=== PATIENT | male | born 1945 | race Caucasian/White ===

== ENCOUNTER 2017-08-18 10:40 | Emergency (ER) | payer OTHER, MEDICARE ==
[2017-08-18 11:06] VITALS: BMI 26.5
[2017-08-18 11:13] VITALS: RESP 18; TEMP 98.4
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
[2017-08-18 12:15] LABS: BASO # 0.01 K/mm3 (0.0-2.0); BASO % 0.1 % (0.0-3.0); EOS # 0.1 (0.0-0.7); EOS % 1.5 % (1.5-5.0); GRAN # 6.15 (1.4-6.5); GRAN % 69.6 % (50.0-68.0); MEAN CELL VOLUME 83.2 fl (80.0-105.0); MEAN CORPUSCULAR HEMOGLOBIN 28.4 pg (25.0-35.0); MEAN CORPUSCULAR HGB CONC 34.2 g/dl (31.0-37.0); MEAN PLATELET VOLUME 8.9 fl (7.0-11.0); MONO # 0.5 (0.1-0.6); MONO % 5.8 % (1.0-6.0); RBC 4.22 10^6/uL (3.5-6.1); RED CELL DISTRIBUTION WIDTH 13.3 % (11.5-14.5); WHITE BLOOD COUNT 8.8 10^3/ul (4.5-11.0)
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
[2017-08-18 12:20] LABS: ALB/GLOB RATIO 1.4 (1.1-1.8); ALBUMIN 4.4 g/dL (3.0-4.8); ALT/SGPT 40 U/L (7-56); AST/SGOT 36 U/L (17-59); BLOOD UREA NITROGEN 24 mg/dL (7-21); CALCIUM 9.9 mg/dL (8.4-10.5); GFR AFRICAN-AMERICAN > 60; GFR NON-AFRICAN AMERICAN > 60
[2017-08-18 12:31] LABS: TROPONIN I < 0.01 ng/mL
[2017-08-18 13:01] VITALS: BP 131/67; PULSE 79; O2SAT 95
--- NOTE | 2017-08-18 19:11 | CARD ---
APPROVED REPORT EKG Measurement Heart [id number] [place] [id number] <Conclusion> Normal sinus rhythm Normal ECG
== END 2017-08-18 13:31 | disposition home or self-care (01) ==
LOC: ED 10:40
DX: M79.1 Myalgia (principal); E11.9 Type 2 diabetes mellitus without complications; E78.5 Hyperlipidemia, unspecified; I10 Essential (primary) hypertension; I25.10 Atherosclerotic heart disease of native coronary artery without angina pectoris; Z87.891 Personal history of nicotine dependence; Z85.46 Personal history of malignant neoplasm of prostate
CPT/HCPCS: 71045; 80053; 82550; 83615; 83735; 84484; 85025; 93005; 96374; 99284; J1885

== ENCOUNTER 2018-02-10 11:12 | Observation (INO) | payer MEDICARE ==
[2018-02-10 11:22] VITALS: BMI 25.8
[2018-02-10] MEDS ORDERED: Sodium Chloride 0.9% 1,000 ML IV SCH (12:00)
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
[2018-02-10 12:33] LABS: PH,URINE 5.5 (4.7-8.0); URINE APPEARANCE CLEAR (CLEAR); URINE BILIRUBIN NEGATIVE (NEGATIVE); URINE BLOOD NEGATIVE (NEGATIVE); URINE COLOR YELLOW (YELLOW); URINE GLUCOSE (UA) 500 mg/dL (NEGATIVE); URINE LEUKOCYTE ESTERASE NEGATIVE Leu/uL (NEGATIVE); URINE PROTEIN NEGATIVE mg/dL (<30 mg/dL); URINE UROBILINOGEN 0.2 E.U./dL (<1 E.U./dL)
--- NOTE | 2018-02-10 12:33 | RAD ---
Date of service: 02/10/2018 HISTORY: dizziness COMPARISON: 08/18/2017 FINDINGS: LUNGS: The lungs are well inflated and clear. PLEURA: No pleural effusions or pneumothorax. CARDIOVASCULAR: The heart is normal in size. No aortic atherosclerotic calcification present. Status post median sternotomy OSSEOUS STRUCTURES: Within normal limits for the patient's age. VISUALIZED UPPER ABDOMEN: Normal. OTHER FINDINGS: None. IMPRESSION: No active pulmonary disease.
[2018-02-10 12:34] LABS: BASO # 0.02 K/mm3 (0.0-2.0); BASO % 0.2 % (0.0-3.0); EOS # 0.1 (0.0-0.7); EOS % 0.6 % (1.5-5.0); GRAN # 7.02 (1.4-6.5); GRAN % 80.6 % (50.0-68.0); HEMOGLOBIN 12.6 g/dL (14.0-18.0); LYMPH # 1.3 (1.2-3.4); LYMPH % 15.4 % (22.0-35.0); MEAN CORPUSCULAR HEMOGLOBIN 28.7 pg (25.0-35.0); MEAN CORPUSCULAR HGB CONC 33.8 g/dl (31.0-37.0); MEAN PLATELET VOLUME 8.8 fl (7.0-11.0); MONO # 0.3 (0.1-0.6); MONO % 3.2 % (1.0-6.0); RBC 4.39 10^6/uL (3.5-6.1); RED CELL DISTRIBUTION WIDTH 12.9 % (11.5-14.5); WHITE BLOOD COUNT 8.7 10^3/ul (4.5-11.0)
[2018-02-10 12:43] LABS: INR 1.03; PARTIAL THROMBOPLASTIN TIME 26.7 Seconds (25.1-36.5); PROTHROMBIN TIME 11.8 SECONDS (9.4-12.5)
[2018-02-10 12:47] LABS: ALB/GLOB RATIO 1.3 (1.1-1.8); ALBUMIN 4.3 g/dL (3.0-4.8); ALT/SGPT 31 U/L (7-56); AST/SGOT 33 U/L (17-59); BLOOD UREA NITROGEN 22 mg/dL (7-21); CALCIUM 9.7 mg/dL (8.4-10.5); GFR NON-AFRICAN AMERICAN > 60
[2018-02-10 12:58] LABS: TROPONIN I < 0.01 ng/mL
--- NOTE | 2018-02-10 14:48 | CP.PCM.HP ---
<Neeta Jamison - Last Filed: 02/10/18 14:55> History of Present Illness - History of Present Illness History of Present Illness: 72 year old male with a past medical history of diabetes, CAD s/p CABG, dyslipidemia, vertigo who presents with room spinning sensation that did not respond to his at home Meclizine. He reports also having nausea. The vertigo worsens with movement of his head. In the ED he is sitting with his bed at 45 degrees and his head tilted to the left with the lights off. He denies headache, tinnitus, or any changes in hearing or vision. He does report substantial heari ng loss from his left ear that has been present for 15 years. He denies chest pain, diaphoresis, palpitations, fevers, aural fullness, new onset unilateral weakness or numbness, diarrhea, cough, or any upper respiratory complaints. He was unable to engage in the Zuleima Maneuver and furthermore the Meclizine in the ED (25 mg) did not help. Otherwise, he has no other complaints. 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; denies alcohol or illicit drug use Present on Admission - Present on Admission Any Indicators Present on Admission: No Review of Systems - Review of Systems All systems: reviewed and no additional remarkable complaints except (as per HPI) Past Patient History - Infectious Disease Hx of Infectious Diseases: None - Tetanus Immunizations Tetanus Immunization: Unknown - Past Social History Smoking Status: Former Smoker - CARDIAC Hx Cardiac Disorders: Yes Hx Heart Attack: Yes Hx Hypertension: Yes Other/Comment: x4 stents - PULMONARY Hx Respiratory Disorders: No - NEUROLOGICAL Hx Neurological Disorder: Yes Hx Vertigo: Yes Other/Comment: Neuropathy - RENAL Hx Chronic Kidney Disease: No - ENDOCRINE/METABOLIC Hx Diabetes Mellitus Type 2: Yes - HEMATOLOGICAL/ONCOLOGICAL Hx Blood Transfusions: No Hx Blood Transfusion Reaction: No - MUSCULOSKELETAL/RHEUMATOLOGICAL Hx Falls: No - GASTROINTESTINAL Hx Diverticulitis: Yes - GENITOURINARY/GYNECOLOGICAL Hx Prostate Problems: Yes (cancer) - PSYCHIATRIC Hx Depression: No Hx Emotional Abuse: No Hx Physical Abuse: No Hx Substance Use: No - SURGICAL HISTORY Hx Coronary Artery Bypass Graft: Yes Other/Comment: prostatectomy,penile implant - ANESTHESIA Hx Anesthesia: Yes Hx Anesthesia Reactions: No Hx Malignant Hyperthermia: No Meds Allergies/Adverse Reactions: Allergies Allergy/AdvReac Type Severity Reaction Status Date / Time No Known Allergies Allergy Verified 02/10/18 11:22 Physical Exam - Constitutional Appears: Non-toxic - Head Exam Head Exam: ATRAUMATIC, NORMOCEPHALIC - Eye Exam Eye Exam: EOMI, Normal appearance, Nystagmus (not appreciated) - ENT Exam ENT Exam: Mucous Membranes Moist - Neck Exam Neck exam: Positive for: Normal Inspection - Respiratory Exam Respiratory Exam: Clear to Auscultation Bilateral, NORMAL BREATHING PATTERN. absent: Accessory Muscle Use - Cardiovascular Exam Cardiovascular Exam: RRR, +S1, +S2 - GI/Abdominal Exam GI & Abdominal Exam: Normal Bowel Sounds, Soft - Extremities Exam Extremities exam: Positive for: normal inspection. Negative for: calf tenderness - Back Exam Back exam: NORMAL INSPECTION. absent: CVA tenderness (L), CVA tenderness (R) - Neurological Exam Neurological exam: Alert, CN II-XII Intact, Oriented x3 - Psychiatric Exam Psychiatric exam: Normal Affect, Normal Mood - Skin Skin Exam: Dry, Intact, Normal Color, Warm Results - Vital Signs Recent Vital Signs: Last Vital Signs Temp 98.2 F 02/10/18 11:19 Pulse 75 02/10/18 11:41 Resp 18 02/10/18 11:41 BP 164/68 H 02/10/18 11:41 Pulse Ox 99 02/10/18 11:41 - Labs Result Diagrams: 02/10/18 12:09 02/10/18 12:09 Labs: Laboratory Results - last 24 hr 02/10/18 02/10/18 02/10/18 11:32 12:09 12:09 WBC 8.7 RBC 4.39 Hgb 12.6 L Hct 37.3 L MCV 85.0 MCH 28.7 MCHC 33.8 RDW 12.9 Plt Count 235 MPV 8.8 Gran % 80.6 H Lymph % (Auto) 15.4 L [place] % (Auto) 3.2 Eos % (Auto) 0.6 L Baso % (Auto) 0.2 Gran # 7.02 H Lymph # (Auto) 1.3 [place] # (Auto) 0.3 Eos # (Auto) 0.1 Baso # (Auto) 0.02 PT INR APTT Sodium 135 Potassium 4.4 Chloride 98 Carbon Dioxide 26 Anion Gap 15 BUN 22 H Creatinine 1.0 Est GFR ( Amer) > 60 Est GFR (Non-Af Amer) > 60 POC Glucose (mg/dL) 254 H Random Glucose 263 H Calcium 9.7 Total Bilirubin 0.6 AST 33 ALT 31 Alkaline Phosphatase 68 Lactate Dehydrogenase 358 Total Creatine Kinase 119 Troponin I < 0.01 Total Protein 7.5 Albumin 4.3 Globulin 3.2 Albumin/Globulin Ratio 1.3 Urine Color Urine Appearance Urine pH Ur Specific [place] Urine Protein Urine Glucose (UA) Urine Ketones Urine Blood Urine Nitrate Urine Bilirubin Urine Urobilinogen Ur Leukocyte Esterase 02/10/18 02/10/18 12:09 12:09 WBC RBC Hgb Hct MCV MCH MCHC RDW Plt Count MPV Gran % Lymph % (Auto) [place] % (Auto) Eos % (Auto) Baso % (Auto) Gran # Lymph # (Auto) [place] # (Auto) Eos # (Auto) Baso # (Auto) PT 11.8 INR 1.03 APTT 26.7 Sodium Potassium Chloride Carbon Dioxide Anion Gap BUN Creatinine Est GFR ( Amer) Est GFR (Non-Af Amer) POC Glucose (mg/dL) Random Glucose Calcium Total Bilirubin AST ALT Alkaline Phosphatase Lactate Dehydrogenase Total Creatine Kinase Troponin I Total Protein Albumin Globulin Albumin/Globulin Ratio Urine Color Yellow Urine Appearance Clear Urine pH 5.5 Ur Specific [place] 1.020 Urine Protein Negative Urine Glucose (UA) 500 H Urine Ketones Negative Urine Blood Negative Urine Nitrate Negative Urine Bilirubin Negative Urine Urobilinogen 0.2 Ur Leukocyte Esterase Negative Assessment & Plan - Assessment and Plan (Free Text) Assessment: 72 year old male with a past medical history significant for CAD s/p CABG, hypertension, DM II with peripheral neuropathy, prostate cancer and vertigo who presents with room spinning sensation that did not respond to his at home Mecmadhu garcía. Plan: 1) Rule out atypical ACS - Trend troponins x3 - EKG showed T-wave inversion in lateral precordial leads - HgbA1c, TSH, lipid panel 2) Vertigo - Neurology consulted - Cardiology consulted - Continue NS at 180 mls/hr to rehydrate patient (two bags) - Diphenylhydramine 25 mg q8h PRN - Zofran 4 mg q6h PRN - Physical Therapy for vestibular rehabilitation if vertigo is determined to be non-central in nature 3) DM II - ISS lispro Medium - FSGB ACHS - HgbA1c - Holding Metformin and Sulfonyrea 4) Hypertension - Lisinopril 10 mg 5) CAD - Continue high intensity statin - Aspirin 6) DVT prophylaxis - SCD Case reviewed and discussed with attending physician, Dr. Bell - Date & Time Date: 02/10/18 Time: 15:10 <Ravin Bell S - Last Filed: 02/12/18 12:18> Results - Vital Signs Recent Vital Signs: Last Vital Signs Temp 98.2 F 02/11/18 12:00 Pulse 68 02/11/18 12:00 Resp 21 02/11/18 12:00 BP 146/63 02/11/18 12:00 Pulse Ox 97 02/11/18 06:00 - Labs Result Diagrams: 02/10/18 12:09 02/10/18 12:09 Labs: Laboratory Results - last 24 hr 02/11/18 02/11/18 06:00 12:57 POC Glucose (mg/dL) 347 H Hemoglobin A1c 7.7 H Assessment & Plan - Assessment and Plan (Free Text) Plan: Pt seen and examined. I have reviewed the note of the associate medical director and agree with it. I have discussed the assessment and plan with the resident. I have reviewed the patient's labs and medications. Pt with Vertigo from Vestibulitis. He will be seen by Neuro. HTN controlled with Lisinopril. On ASA for CAD.
[2018-02-10] MEDS ORDERED: DiphenhydrAMINE 50 mg/ml Inj IVP PRN (15:12)
[2018-02-10] MEDS: Sodium Chloride 0.9% 1,000 ML IV SCH ×2 (16:26→22:37)
[2018-02-10] MEDS ORDERED: Influenza Vaccine 60 mcg/0.5 mL SYR (4YR UP) IM ONE (17:57)
[2018-02-10] MEDS ORDERED: Pneumococcal 23-Valent Vaccine IM ONE (17:57)
[2018-02-10] MEDS ORDERED: Dexamethasone 4 mg/1 ml IVP ONE (18:00)
[2018-02-10] MEDS: Insulin Lispro (humaLOG) MEDIUM Coverage SC SCH ×2 (18:34→22:35)
--- NOTE | 2018-02-10 19:19 | CON ---
DATE OF CONSULTATION: 02/10/2018 CHIEF COMPLAINT: Dizziness. HISTORY OF PRESENT ILLNESS: This is a 72-year-old man with a past medical history of type 2 diabetes mellitus, coronary artery disease, status post CABG, dyslipidemia, vertigo in the past, who presented with spinning sensation of the room, which did not respond to meclizine at this time. He has also mentioned that he had ringing of his ears along with nausea and vomiting. His vertigo and his spinning sensation of the room was worse with moving his head. In the ER, he was seen with having his head tilted to the left with the lights off. He is unable to engage in Zuleima maneuver due to the spinning sensation of the room. No focal weakness of the extremities seen. He is on Neurontin for peripheral neuropathy. PAST MEDICAL HISTORY: Type 2 diabetes mellitus, peripheral neuropathy, prostate cancer implants, status post prostatectomy, vertigo, hypertension, diverticular disease. PAST SURGICAL HISTORY: Prostate surgery and CABG. FAMILY HISTORY: Noncontributory. SOCIAL HISTORY: Has not smoked in the past few years. Denies any alcohol or illicit drug use. ALLERGIES: NO KNOWN DRUG ALLERGIES. REVIEW OF SYSTEMS: Per the HPI. PHYSICAL EXAMINATION: VITAL SIGNS: Temperature 97.2, pulse rate of 63, blood pressure 120/57, respiratory rate 20, oxygen saturation 98% on room air. GENERAL: The patient is sitting up in bed, in no acute distress. HEENT: Atraumatic, normocephalic. PERRLA. Extraocular muscles intact. NECK: Supple. No JVD. No adenopathy noted. LUNGS: Clear to auscultation. No adventitious sounds. HEART: S1 and S2. Regular rate and rhythm. No murmurs, rubs or gallops. ABDOMEN: Soft, nontender and nondistended. Bowel sounds are present. EXTREMITIES: No clubbing. No cyanosis. Peripheral pulses 2+ felt bilaterally. NEUROLOGIC: The patient is alert and oriented to person, place, month, and year. Speech is fluent without any errors. Cranial nerves II through XII intact. MOTOR EXAM: Moves all extremities equally. No pronator drift seen. SENSORY EXAM: Decreased light touch and pinprick up to the calves bilaterally. Decreased vibration of the toes. DTRs are 2+ throughout and 1 at both knees and ankles. LABORATORY DATA: Sodium is 135, potassium 4, chloride 98, carbon dioxide of 26, BUN of 22, creatinine 1.0, random glucose of 263. IMPRESSION: This is more of a vestibular vertigo with possible underlying vestibular neuritis. At this time, recommend to continue with meclizine 25 mg p.o. t.i.d. and will need outpatient vestibular therapy. We will give dexamethasone 2 mg x1 dose to reduce the neuritis. Also recommend to keep blood pressure 141/80 and diabetic diet and continue his gabapentin for his diabetic peripheral neuropathy. He is clinically stable. Thank you for this consultation. John Miller MD
[2018-02-11 06:04] VITALS: O2SAT 97
[2018-02-11 07:20] LABS: HDL CHOLESTEROL 44 mg/dL (29-60)
[2018-02-11 07:32] LABS: LDL CHOLESTEROL 79 mg/dL (0-129)
[2018-02-11] MEDS: Insulin Lispro (humaLOG) MEDIUM Coverage SC SCH (07:56)
--- NOTE | 2018-02-11 09:50 | US ---
PROCEDURE: Bilateral carotid artery duplex ultrasound HISTORY: Carotid stenosis vertigo PHYSICIAN(S): Zachery Ugalde MD. TECHNIQUE: Duplex sonography and color-flow Doppler were used to evaluate the carotid bifurcations and limited segments of the vertebral arteries bilaterally. FINDINGS: There is mild to moderate smooth heterogeneous plaque noted at the carotid bifurcations bilaterally. The peak systolic velocity in the proximal right internal carotid artery is 102 cm/sec. This corresponds to a 20 to 39% proximal right ICA stenosis. Normal systolic velocities are noted in the proximal right external carotid artery. There is antegrade flow in the right vertebral artery. The peak systolic velocity in the proximal left internal carotid artery is 117 cm/sec. This corresponds to a 20 to 39% proximal left ICA stenosis. Normal systolic velocities are noted in the proximal left external carotid artery. There is antegrade flow in the left vertebral artery. IMPRESSION: 1. Bilateral 20-39% proximal ICA stenoses. 2. Antegrade flow in both vertebral arteries.
[2018-02-11] MEDS ORDERED: [UNRECOGNIZED DRUG - REMARK] PO SCH (10:00)
--- NOTE | 2018-02-11 10:32 | CARD ---
APPROVED REPORT Date of service: 02/10/2018 EKG Measurement Heart [id number] <Conclusion> Normal sinus rhythm LVH by voltage T wave abnormality, consider lateral ischemia, new Prolonged QT
--- NOTE | 2018-02-11 11:41 | CP.PCM.DIS ---
<Neeta Jamison - Last Filed: 02/11/18 13:50> Provider - Provider Date of Admission: 02/10/18 13:38 Attending physician: Ravin Bell MD Primary care physician: Tacho Grover MD Consults: Dr. Miller Time Spent in preparation of Discharge (in minutes): 35 Hospital Course - Lab Results Lab Results: Most Recent Lab Values WBC 8.7 10^3/ul (4.5-11.0) 02/10/18 12:09 RBC 4.39 10^6/uL (3.5-6.1) 02/10/18 12:09 Hgb 12.6 g/dL (14.0-18.0) L 02/10/18 12:09 Hct 37.3 % (42.0-52.0) L 02/10/18 12:09 MCV 85.0 fl (80.0-105.0) 02/10/18 12:09 MCH 28.7 pg (25.0-35.0) 02/10/18 12:09 MCHC 33.8 g/dl (31.0-37.0) 02/10/18 12:09 RDW 12.9 % (11.5-14.5) 02/10/18 12:09 Plt Count 235 10^3/uL (120.0-450.0) 02/10/18 12:09 MPV 8.8 fl (7.0-11.0) 02/10/18 12:09 Gran % 80.6 % (50.0-68.0) H 02/10/18 12:09 Lymph % (Auto) 15.4 % (22.0-35.0) L 02/10/18 12:09 [place] % (Auto) 3.2 % (1.0-6.0) 02/10/18 12:09 Eos % (Auto) 0.6 % (1.5-5.0) L 02/10/18 12:09 Baso % (Auto) 0.2 % (0.0-3.0) 02/10/18 12:09 Gran # 7.02 (1.4-6.5) H 02/10/18 12:09 Lymph # (Auto) 1.3 (1.2-3.4) 02/10/18 12:09 [place] # (Auto) 0.3 (0.1-0.6) 02/10/18 12:09 Eos # (Auto) 0.1 (0.0-0.7) 02/10/18 12:09 Baso # (Auto) 0.02 K/mm3 (0.0-2.0) 02/10/18 12:09 PT 11.8 SECONDS (9.4-12.5) 02/10/18 12:09 INR 1.03 02/10/18 12:09 APTT 26.7 Seconds (25.1-36.5) 02/10/18 12:09 Sodium 135 mmol/L (132-148) 02/10/18 12:09 Potassium 4.4 mmol/L (3.6-5.0) 02/10/18 12:09 Chloride 98 mmol/L (98-107) 02/10/18 12:09 Carbon Dioxide 26 mmol/L (21-33) 02/10/18 12:09 Anion Gap 15 (10-20) 02/10/18 12:09 BUN 22 mg/dL (7-21) H 02/10/18 12:09 Creatinine 1.0 mg/dl (0.8-1.5) 02/10/18 12:09 Est GFR ( Amer) > 60 02/10/18 12:09 Est GFR (Non-Af Amer) > 60 02/10/18 12:09 POC Glucose (mg/dL) 224 mg/dL (65-110) H 02/11/18 08:08 Random Glucose 263 mg/dL (70-110) H 02/10/18 12:09 Calcium 9.7 mg/dL (8.4-10.5) 02/10/18 12:09 Total Bilirubin 0.6 mg/dL (0.2-1.3) 02/10/18 12:09 AST 33 U/L (17-59) 02/10/18 12:09 ALT 31 U/L (7-56) 02/10/18 12:09 Alkaline Phosphatase 68 U/L (38-126) 02/10/18 12:09 Lactate Dehydrogenase 358 U/L (333-699) 02/10/18 12:09 Total Creatine Kinase 119 U/L (35-230) 02/10/18 12:09 Troponin I < 0.01 ng/mL 02/10/18 22:48 Total Protein 7.5 g/dL (5.8-8.3) 02/10/18 12:09 Albumin 4.3 g/dL (3.0-4.8) 02/10/18 12:09 Globulin 3.2 gm/dL 02/10/18 12:09 Albumin/Globulin Ratio 1.3 (1.1-1.8) 02/10/18 12:09 Triglycerides 84 mg/dL (35-160) 02/11/18 06:00 Cholesterol 133 mg/dL (130-200) 02/11/18 06:00 LDL Cholesterol Direct 79 mg/dL (0-129) 02/11/18 06:00 HDL Cholesterol 44 mg/dL (29-60) 02/11/18 06:00 TSH 3rd Generation 1.21 mIU/mL (0.46-4.68) 02/11/18 06:00 Urine Color Yellow (YELLOW) 02/10/18 12:09 Urine Appearance Clear (CLEAR) 02/10/18 12:09 Urine pH 5.5 (4.7-8.0) 02/10/18 12:09 Ur Specific [place] 1.020 (1.005-1.035) 02/10/18 12:09 Urine Protein Negative mg/dL (<30 mg/dL) 02/10/18 12:09 Urine Glucose (UA) 500 mg/dL (NEGATIVE) H 02/10/18 12:09 Urine Ketones Negative mg/dL (NEGATIVE) 02/10/18 12:09 Urine Blood Negative (NEGATIVE) 02/10/18 12:09 Urine Nitrate Negative (NEGATIVE) 02/10/18 12:09 Urine Bilirubin Negative (NEGATIVE) 02/10/18 12:09 Urine Urobilinogen 0.2 E.U./dL (<1 E.U./dL) 02/10/18 12:09 Ur Leukocyte Esterase Negative Jorden/uL (NEGATIVE) 02/10/18 12:09 - Hospital Course Hospital Course: 72 year old male with a past medical history of diabetes, CAD s/p CABG, dyslipidemia, vertigo who presents with room spinning sensation that did not respond to his at home Meclizine. He reports also having nausea. The vertigo worsens with movement of his head. In the ED he is sitting with his bed at 45 degrees and his head tilted to the left with the lights off. He denies headache, tinnitus, or any changes in hearing or vision. He does report substantial hearing loss from his left ear that has been present for 15 years. He denies chest pain, diaphoresis, palpitations, fevers, aural fullness, new onset unilateral weakness or numbness, diarrhea, cough, or any upper respiratory complaints. He was unable to engage in the Zuleima Maneuver and furthermore the Meclizine in the ED (25 mg) did not help. Otherwise, he has no other complaints. Neurology was consulted and gave the patient Dexamethasone. He was also kept on fluids overnight for rehydration. His vertigo and nausea all resolved. MRI of the brain showed no acute stroke, but did show a few scattered foci of white matter signal abnormality, nonspecific but statistically most likely secondary tp chronic microvascular ischemic disease. Carotid US showed 20-39% internal carotid artery stenosis and echocardiogram was performed, but the interpretation is pending. Physical therapy also evaluated the patient and gave him vestibular exercises to perform twice a day. The patient will follow up with Dr. Grover in the office on Wednesday and with Dr. Miller next week as well. - Date & Time of H&P Date of H&P: 02/11/18 Time of H&P: 11:41 Discharge Exam - Head Exam Head Exam: ATRAUMATIC, NORMOCEPHALIC - Eye Exam Eye Exam: EOMI, Normal appearance - ENT Exam ENT Exam: Mucous Membranes Moist - Neck Exam Neck exam: Normal Inspection - Respiratory Exam Respiratory Exam: NORMAL BREATHING PATTERN - Cardiovascular Exam Cardiovascular Exam: RRR, +S1, +S2 - Extremities Exam Extremities exam: normal inspection - Neurological Exam Neurological exam: Alert, CN II-XII Intact, Oriented x3 - Psychiatric Exam Psychiatric exam: Normal Affect, Normal Mood - Skin Skin Exam: Dry, Intact, Normal Color, Warm Discharge Plan - Discharge Medications Prescriptions: RX: Meclizine [Meclizine*] 25 mg PO Q8H #30 tab - Follow Up Plan Condition: GOOD Disposition: HOME/ ROUTINE Instructions: Vertigo (a Type of Dizziness) Additional Instructions: 1) Patient to follow up with Dr. Grover this Wednesday. 2) Patient to follow up with Dr. Miller as an outpatient. 3) Patient to take any medications as directed, unless otherwise indicated. Referrals: Tacho Grover MD [Primary Care Provider] - John Miller MD [Staff Provider] - <Ravin Bell - Last Filed: 02/12/18 11:53> Provider - Provider Date of Admission: 02/10/18 13:38 Attending physician: Ravin Bell MD Primary care physician: Tacho Grover MD Hospital Course - Lab Results Lab Results: Most Recent Lab Values WBC 8.7 10^3/ul (4.5-11.0) 02/10/18 12:09 RBC 4.39 10^6/uL (3.5-6.1) 02/10/18 12:09 Hgb 12.6 g/dL (14.0-18.0) L 02/10/18 12:09 Hct 37.3 % (42.0-52.0) L 02/10/18 12:09 MCV 85.0 fl (80.0-105.0) 02/10/18 12:09 MCH 28.7 pg (25.0-35.0) 02/10/18 12:09 MCHC 33.8 g/dl (31.0-37.0) 02/10/18 12:09 RDW 12.9 % (11.5-14.5) 02/10/18 12:09 Plt Count 235 10^3/uL (120.0-450.0) 02/10/18 12:09 MPV 8.8 fl (7.0-11.0) 02/10/18 12:09 Gran % 80.6 % (50.0-68.0) H 02/10/18 12:09 Lymph % (Auto) 15.4 % (22.0-35.0) L 02/10/18 12:09 [place] % (Auto) 3.2 % (1.0-6.0) 02/10/18 12:09 Eos % (Auto) 0.6 % (1.5-5.0) L 02/10/18 12:09 Baso % (Auto) 0.2 % (0.0-3.0) 02/10/18 12:09 Gran # 7.02 (1.4-6.5) H 02/10/18 12:09 Lymph # (Auto) 1.3 (1.2-3.4) 02/10/18 12:09 [place] # (Auto) 0.3 (0.1-0.6) 02/10/18 12:09 Eos # (Auto) 0.1 (0.0-0.7) 02/10/18 12:09 Baso # (Auto) 0.02 K/mm3 (0.0-2.0) 02/10/18 12:09 PT 11.8 SECONDS (9.4-12.5) 02/10/18 12:09 INR 1.03 02/10/18 12:09 APTT 26.7 Seconds (25.1-36.5) 02/10/18 12:09 Sodium 135 mmol/L (132-148) 02/10/18 12:09 Potassium 4.4 mmol/L (3.6-5.0) 02/10/18 12:09 Chloride 98 mmol/L (98-107) 02/10/18 12:09 Carbon Dioxide 26 mmol/L (21-33) 02/10/18 12:09 Anion Gap 15 (10-20) 02/10/18 12:09 BUN 22 mg/dL (7-21) H 02/10/18 12:09 Creatinine 1.0 mg/dl (0.8-1.5) 02/10/18 12:09 Est GFR ( Amer) > 60 02/10/18 12:09 Est GFR (Non-Af Amer) > 60 02/10/18 12:09 POC Glucose (mg/dL) 347 mg/dL (65-110) H 02/11/18 12:57 Random Glucose 263 mg/dL (70-110) H 02/10/18 12:09 Hemoglobin A1c 7.7 % (4.2-6.5) H 02/11/18 06:00 Calcium 9.7 mg/dL (8.4-10.5) 02/10/18 12:09 Total Bilirubin 0.6 mg/dL (0.2-1.3) 02/10/18 12:09 AST 33 U/L (17-59) 02/10/18 12:09 ALT 31 U/L (7-56) 02/10/18 12:09 Alkaline Phosphatase 68 U/L (38-126) 02/10/18 12:09 Lactate Dehydrogenase 358 U/L (333-699) 02/10/18 12:09 Total Creatine Kinase 119 U/L (35-230) 02/10/18 12:09 Troponin I < 0.01 ng/mL 02/10/18 22:48 Total Protein 7.5 g/dL (5.8-8.3) 02/10/18 12:09 Albumin 4.3 g/dL (3.0-4.8) 02/10/18 12:09 Globulin 3.2 gm/dL 02/10/18 12:09 Albumin/Globulin Ratio 1.3 (1.1-1.8) 02/10/18 12:09 Triglycerides 84 mg/dL (35-160) 02/11/18 06:00 Cholesterol 133 mg/dL (130-200) 02/11/18 06:00 LDL Cholesterol Direct 79 mg/dL (0-129) 02/11/18 06:00 HDL Cholesterol 44 mg/dL (29-60) 02/11/18 06:00 TSH 3rd Generation 1.21 mIU/mL (0.46-4.68) 02/11/18 06:00 Urine Color Yellow (YELLOW) 02/10/18 12:09 Urine Appearance Clear (CLEAR) 02/10/18 12:09 Urine pH 5.5 (4.7-8.0) 02/10/18 12:09 Ur Specific [place] 1.020 (1.005-1.035) 02/10/18 12:09 Urine Protein Negative mg/dL (<30 mg/dL) 02/10/18 12:09 Urine Glucose (UA) 500 mg/dL (NEGATIVE) H 02/10/18 12:09 Urine Ketones Negative mg/dL (NEGATIVE) 02/10/18 12:09 Urine Blood Negative (NEGATIVE) 02/10/18 12:09 Urine Nitrate Negative (NEGATIVE) 02/10/18 12:09 Urine Bilirubin Negative (NEGATIVE) 02/10/18 12:09 Urine Urobilinogen 0.2 E.U./dL (<1 E.U./dL) 02/10/18 12:09 Ur Leukocyte Esterase Negative Jorden/uL (NEGATIVE) 02/10/18 12:09 - Hospital Course Hospital Course: Pt seen and examined. I have reviewed the note of the medical technologist microbiology and agree with it. I have discussed the assessment and plan with the resident. I have reviewed the patient's labs and medications. Pt with Vertigo and on Meclizine. I reviewed his MRI and Carotid doppler. No acute issues. I spoke to the pt's son to give him an update. The pt was seen by neuro and will f/u as outpt. The pt does not have symptoms at this time.
[2018-02-11 12:11] VITALS: BP 146/63; PULSE 68; RESP 21; TEMP 98.2
--- NOTE | 2018-02-11 12:27 | MRI ---
Date of service: 02/10/2018 PROCEDURE: MRI BRAIN WITHOUT CONTRAST HISTORY: dizziness COMPARISON: None available. TECHNIQUE: Multiplanar, multisequence MR images of the brain were obtained without intravenous contrast enhancement. FINDINGS: HEMORRHAGE: None DWI: No evidence of an acute or early subacute infarction. BRAIN PARENCHYMA: No mass effect or edema. Few scattered foci of white matter signal abnormality, nonspecific but statistically most likely secondary to chronic microvascular ischemic disease. VENTRICLES: Unremarkable. No hydrocephalus. CRANIUM: Unremarkable. ORBITS: Grossly unremarkable. PARANASAL SINUSES/MASTOIDS: Clear VASCULAR SYSTEM: Skull base flow voids intact. OTHER FINDINGS: None. IMPRESSION: Few scattered foci of white matter signal abnormality, nonspecific but statistically most likely secondary to chronic microvascular ischemic disease.
--- NOTE | 2018-02-11 18:35 | CON ---
DATE: 02/11/2018 CONSULTATION INDICATIONS: Vertigo, nausea, and vomiting. HISTORY OF PRESENT ILLNESS: This is a 72-year-old male former smoker with a history of diabetes, coronary artery disease, coronary bypass surgery followed by mixologist in [place], who presents with vertigo, spinning sensation associated with nausea and vomiting. This occurred several times. He came to the emergency room yesterday and was admitted. This morning he feels better having been treated with meclizine. There was no chest pain, shortness of breath, orthopnea, PND, syncope, edema, claudication, fever, chills, cough, sputum production, hemoptysis, abdominal pain, nausea, vomiting, diarrhea, constipation or melena. PAST MEDICAL HISTORY: Notable for coronary artery disease, coronary bypass surgery many years ago, diabetes, peripheral neuropathy, prostate cancer with seed implants, hypertension, diverticulosis. There is no history of rheumatic fever, myocardial infarction, congestive heart failure, arrhythmia, stroke, TIA or gout. MEDICATIONS AT THE TIME OF ADMISSION: Include vitamin B, metformin, Motrin, gabapentin, lisinopril, simvastatin glimepiride. ALLERGIES: THERE ARE NO KNOWN MEDICATION ALLERGIES. SOCIAL HISTORY: He is ambulatory. 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 He does not currently smoke. There is no significant alcohol intake. FAMILY HISTORY: Noncontributory. REVIEW OF SYSTEMS: A 10-point review of systems otherwise unremarkable except as noted above. PHYSICAL EXAMINATION: GENERAL: He is a well-developed male, lying in bed on telemetry, in no acute distress. VITAL SIGNS: Notable for sinus bradycardia to sinus rhythm 63 to 78 beats per minute recently, afebrile, blood pressure 117/69, respirations 18 to 20, and O2 sat 95% to 98% on room air. HEENT: Reveals no neck vein distention, thyromegaly, carotid bruits. Mucous membranes moist. Conjunctivae pink. NECK: Supple. LUNGS: Lung diehl clear throughout. HEART: Revealed normal first and second heart sounds. There is a soft systolic murmur in the aortic space and along the left sternal border. ABDOMEN: Soft. Bowel sounds present. No mass, organomegaly, tenderness, rebound, guarding, CVA tenderness or palpable abdominal aortic aneurysm. EXTREMITIES: Revealed no cyanosis, clubbing or edema. NEUROLOGIC: Awake, alert and oriented. SKIN: Warm and dry. No rash or cellulitis. PSYCHIATRIC: Normal as to mood and affect. LABORATORY AND IMAGING STUDIES: EKG demonstrates regular sinus rhythm. There are lateral ST wave changes, which are new compared to a prior EKG, LVH, mildly prolonged QT interval. Chest x-ray reveals no active pulmonary disease. Brain MRI and carotid artery ultrasound are pending. Hemoglobin 12.6, hematocrit 37.3, white count normal and platelet count normal. PT/INR and PTT, unremarkable. Electrolytes; BUN and creatinine unremarkable. Blood sugars in the 131 to 254 range. LFTs unremarkable. Two troponins negative. CK 119. Total cholesterol 133, LDL 79 and HDL 44. TSH is normal. Urinalysis is noted. IMPRESSION: Da Feliciano is a 72-year-old man with vertigo, admitted with spinning sensation associated with nausea and vomiting. This has occurred in the past, it has been treated with meclizine. This morning he feels better. There was no arrhythmia detected. His troponins are negative x2, but his EKG does show new ischemic type ST-wave changes compared to a prior EKG from 08/2017. He is being seen by Neurology, having a neurologic consultation. He has been treated with dexamethasone and meclizine. Neurologic imaging studies are pending. He is getting lisinopril, gabapentin, Lipitor and insulin. I will check an echocardiogram. Given the EKG changes, he should be considered for a nuclear stress testing. He has a mixologist in [place] and has regular followup, so this can be done on an outpatient basis by his mixologist. He can be out of bed. We will check orthostatic vital signs. I will follow along with you. I will make additional recommendations based on his clinical course. Eh Teresa MD MTDD
--- NOTE | 2018-02-12 09:26 | CARD ---
APPROVED REPORT Date of service: 02/11/2018 EXAM: Two-dimensional and M-mode echocardiogram with Doppler and color Doppler. Other Information Quality : AverageRhythm : INDICATION VERTIGO, CAD/CABG. 2D DIMENSIONS Left Atrium (2D)4.6 (1.6-4.0cm)IVSd0.9 (0.7-1.1cm) LVDd4.7 (3.9-5.9cm)LVOT Diameter2.1 (1.8-2.4cm) PWd1.1 (0.7-1.1cm)LVDs3.0 (2.5-4.0cm) FS (%) 37.6 %LVEF (%)67.0 (>50%) M-Mode DIMENSIONS Aortic Root3.20 (2.2-3.7cm)Aortic Cusp Exc.0.80 (1.5-2.0cm) Aortic Valve AoV Peak Ukphynrj018.0cm/sAoV VTI63.0cmAO Peak GR.37mmHg LVOT Peak Mrclsutk25.5cm/sLVOT VTI20.30cmAO Mean GR.18mmHg REGGIE (VMAX)1.95wp9DCD (VTI)1.11cm2 Mitral Valve MV E Wrsfbchw035.0cm/sMV A Dpbxvebe69.4cm/sE/A ratio1.2 TDI Lateral E' Peak V10.10cm/sMedial E' Peak V7.51cm/sE/Lateral E'10.4 E/Medial E'14.0 Pulmonary Valve PV Peak Vyvrnmlu05.9cm/sPV Peak Grad.3mmHg Tricuspid Valve TR Peak Hnlgjqlf155vu/sRAP KIQVPHZH84kgVeDV Peak Gr.31mmHg TIEV06kgLm LEFT VENTRICLE The left ventricle is normal size. There is normal left ventricular wall thickness. The left ventricular function is normal. The left ventricular ejection fraction is within the normal range. There is normal LV segmental wall motion. RIGHT VENTRICLE The right ventricle is normal size. ATRIA The left atrium is moderately dilated. The right atrium size is normal. The interatrial septum is intact with no evidence for an atrial septal defect. AORTIC VALVE The aortic valve is moderately to severely calcified. There is moderate valvular aortic stenosis. MITRAL VALVE The mitral valve is normal in structure. Mitral regurgitation is trace to mild. TRICUSPID VALVE The tricuspid valve is normal in structure. There is trace tricuspid regurgitation. There is mild-moderate pulmonary hypertension. PULMONIC VALVE The pulmonic valve is not well visualized. GREAT VESSELS The aortic root is normal in size. PERICARDIAL EFFUSION There is no pericardial effusion. <Conclusion> The left ventricle is normal size. There is normal left ventricular wall thickness. The left ventricular function is normal. The aortic valve is moderately to severely calcified. There is moderate valvular aortic stenosis. Mitral regurgitation is trace to mild. There is trace tricuspid regurgitation. There is mild-moderate pulmonary hypertension.
== END 2018-02-11 13:10 | disposition home or self-care (01) ==
LOC: ED 11:12 → ERH 13:38 → 2RSO 15:42
PROVIDERS: ADMIT Internal Medicine Nephrology; ATTEND Internal Medicine Nephrology
DX: R42 Dizziness and giddiness (principal); I65.23 Occlusion and stenosis of bilateral carotid arteries; I25.10 Atherosclerotic heart disease of native coronary artery without angina pectoris; I10 Essential (primary) hypertension; E11.42 Type 2 diabetes mellitus with diabetic polyneuropathy; E78.5 Hyperlipidemia, unspecified; H91.92 Unspecified hearing loss, left ear; I25.2 Old myocardial infarction; Z85.46 Personal history of malignant neoplasm of prostate; Z90.79 Acquired absence of other genital organ(s); Z95.1 Presence of aortocoronary bypass graft; Z87.891 Personal history of nicotine dependence
CPT/HCPCS: 36415; 70551; 71045; 80053; 80061; 81003; 82550; 82948; 83036; 83615; 84443; 84484; 85025; 85610; 85730; 93005; 93306; 93880; 97116; 97161; 99285; G0378; G8978; G8979; G8980; J1100; J7030

== ENCOUNTER 2018-03-27 02:55 | Inpatient (IN) | payer MEDICARE ==
[2018-03-27 02:55] VITALS: BMI 25.8
--- NOTE | 2018-03-27 03:35 | ED PDOC ---
Arrival/HPI - General Chief Complaint: Abdominal Pain Time Seen by Provider: 03/27/18 02:55 Historian: Patient - History of Present Illness Narrative History of Present Illness (Text): 03/27/18 03:30 Da Feliciano is a 72 year old male, whose past medical history includes diabetes with peripheral neuropathy, CAD s/p CABG, dyslipidemia, hypertension, DVT, prostate cancer s/p prostatectomy, sciatica, and vertigo, who presents to the Emergency department complaining of abdominal pain. Patient states he began experiencing LLQ pain today with associated nausea, vomiting, and diarrhea. Patient states he feels better after having a bowel movement in the Emergency department and denies any nausea currently. notes patient recently underwent a cardiac catheterization via the right groin 5 days prior. Patient denies any fever, chills, chest pain, shortness of breath, nausea, vomiting, diarrhea, urinary symptoms, back pain, neck pain, headache, dizziness, or any other complaints. Symptom Onset: Gradual Symptom Course: Unchanged Activities at Onset: Light Context: Home Past Medical History - Provider Review Nursing Documentation Reviewed: Yes - Infectious Disease Hx of Infectious Diseases: None - Tetanus Immunization Tetanus Immunization: Unknown - Cardiac Hx Cardiac Disorders: Yes Hx MN: Yes Hx Hypertension: Yes Other/Comment: x4 stents - Pulmonary Hx Respiratory Disorders: No - Neurological Hx Neurological Disorder: Yes Hx Vertigo: Yes Other/Comment: Neuropathy - HEENT Hx HEENT Disorder: Yes (eyeglassees) - Renal Hx Renal Disorder: No - Endocrine/Metabolic Hx Endocrine Disorders: Yes Hx Diabetes Mellitus Type 2: Yes - Hematological/Oncological Hx Blood Transfusions: No Hx Blood Transfusion Reaction: No - Integumentary Hx Dermatological Disorder: No - Musculoskeletal/Rheumatological Hx Falls: No - Gastrointestinal Hx Gastrointestinal Disorders: Yes Hx Diverticulitis: Yes - Genitourinary/Gynecological Hx Genitourinary Disorders: Yes Hx Prostate Problems: Yes (cancer) - Psychiatric Hx Depression: No Hx Emotional Abuse: No Hx Physical Abuse: No Hx Substance Use: No - Surgical History Hx Coronary Artery Bypass Graft: Yes (2002) Other/Comment: prostatectomy,penile implant - Anesthesia Hx Anesthesia: Yes Hx Anesthesia Reactions: No Hx Malignant Hyperthermia: No - Suicidal Assessment Feels Threatened In Home Enviroment: No Family/Social History - Physician Review Nursing Documentation Reviewed: Yes Family/Social History: Unknown Family HX Smoking Status: Former Smoker Hx Alcohol Use: Yes (prior abuse, quit 15 years ago) Hx Substance Use: No Hx Substance Use Treatment: No Allergies/Home Meds Allergies/Adverse Reactions: Allergies No Known Allergies Allergy (Verified 02/10/18 11:22) Home Medications: Home Meds Medication Instructions Recorded Confirmed RX: Metformin HCl 1,000 mg PO BID 04/29/12 02/10/18 RX: Gabapentin [Neurontin] 300 mg PO TID 08/18/17 02/10/18 RX: Glimepiride [amaRYL] 2 mg PO BID 08/18/17 02/10/18 RX: Lisinopril [Zestril] 10 mg PO DAILY 08/18/17 02/10/18 RX: Simvastatin [Zocor] 80 mg PO DIN 08/18/17 02/10/18 RX: Vitamin B Complex 100 No.2 100 mg PO DAILY 08/18/17 02/10/18 [B-100 Complex] Review of Systems - Physician Review All systems were reviewed & negative as marked: Yes - Review of Systems Constitutional: Normal. absent: Fevers Eyes: Normal ENT: Normal Respiratory: Normal. absent: SOB, Cough Cardiovascular: Normal. absent: Chest Pain Gastrointestinal: Abdominal Pain, Diarrhea, Nausea, Vomiting Genitourinary Male: Normal. absent: Dysuria, Frequency, Hematuria, Urinary Output Changes Musculoskeletal: Normal. absent: Back Pain, Neck Pain Skin: Normal. absent: Rash Neurological: Normal. absent: Headache, Dizziness Endocrine: Normal Hemo/Lymphatic: Normal Psychiatric: Normal Physical Exam Vital Signs Reviewed: Yes Temperature: Afebrile Blood Pressure: Normal Pulse: Regular Respiratory Rate: Normal Appearance: Positive for: Well-Appearing, Non-Toxic, Comfortable Pain Distress: None Mental Status: Positive for: Alert and Oriented X 3 - Systems Exam Head: Present: Atraumatic, Normocephalic Pupils: Present: PERRL Extroacular Muscles: Present: EOMI Conjunctiva: Present: Normal Mouth: Present: Moist Mucous Membranes Neck: Present: Normal Range of Motion Respiratory/Chest: Present: Clear to Auscultation, Good Air Exchange. No: Respiratory Distress, Accessory Muscle Use Cardiovascular: Present: Regular Rate and Rhythm, Normal S1, S2. No: Murmurs Abdomen: No: Tenderness, Distention, Peritoneal Signs Back: Present: Normal Inspection Upper Extremity: Present: Normal Inspection. No: Cyanosis, Edema Lower Extremity: Present: Normal Inspection. No: Edema Neurological: Present: GCS=15, CN II-XII Intact, Speech Normal Skin: Present: Warm, Dry, Normal Color. No: Rashes Psychiatric: Present: Alert, Oriented x 3, Normal Insight, Normal Concentration Medical Decision Making ED Course and Treatment: 03/27/18 03:30 Impression: 72 year old male complaining of LLQ pain, nausea, vomiting, and diarrhea tonight. Plan: -- EKG -- Labs, cardiac enzymes, lipase, amylase -- Urinalysis -- IV fluids -- Reassess and disposition Prior Visits: Notes and results from previous visits were reviewed. Progress Notes: Reviewed EKG, NSR at [address] bpm[address] Non-specific ST/T wave changes. 03/27/18 05:19 CT Abdomen and Pelvis reviewed, shows: LUNG BASES: The lung bases appear clear. No pleural effusions are seen. LIVER: Unremarkable. GALLBLADDER AND BILE DUCTS: The gallbladder appears within normal limits. No radioopaque gallstones are seen. No biliary ductal dilatation is evident. PANCREAS: Unremarkable. SPLEEN: Unremarkable. ADRENAL GLANDS: Unremarkable. KIDNEYS, URETERS, AND BLADDER: The kidneys appear within normal limits. There is no hydronephrosis or hydroureter. No urinary calculi are seen. STOMACH AND BOWEL: Thick walled fluid filled colon is noted with involvement of all segments compatible with diffuse pancolitis, left colon is more severely involved. Infectious and inflammatory etiologies are considered. APPENDIX: No evidence of acute appendicitis on CT examination. PERITONEUM: No free fluid. No free air. LYMPH NODES: No lymphadenopathy is evident. REPRODUCTIVE: Prostate is mildly enlarged. Penile device is noted. VASCULATURE: No evidence of abdominal aortic aneurysm. BONES: No aggressive appearing osseous lesion. No acute osseous pathology evident. MISCELLANEOUS: There are multiple small calcified gallstones noted. IMPRESSION: 1. There are multiple small calcified gallstones noted. 2. Pancolitis. Infectious and inflammatory etiologies are considered. Electronically signed on Mar 27, 2018 5:16:34 AM EST by: Latrell Plunkett M.D., GREG Certified By [facility] Fellowship Trained MRI and CT Specialist 03/27/18 05:40 Pt now complaining of rectal bleeding while in Emergency department. Call placed to Dr. Weber. 03/27/18 06:[address] Weber, covering for Dr. Bell, who is aware and agrees with plan. Accepts pt in to the her service. Pt will go to [facility] observation for colitis. Requests Dr. Johnson and Dr. Hernandez on consult. 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 I have reviewed the chart and agree that the record accurately reflects my personal performance of the history, physical exam, medical decision making, and the department course for this patient. I have also personally directed, reviewed, and agree with the discharge instructions and disposition. Disposition/Present on Arrival - Present on Arrival Any Indicators Present on Arrival: No History of DVT/PE: No History of Uncontrolled Diabetes: No Urinary Catheter: No History of Decub. Ulcer: No History Surgical Site Infection Following: None - Disposition Have Diagnosis and Disposition been Completed?: Yes Diagnosis: Colitis Disposition: HOSPITALIZED Disposition Time: 06:00 Condition: GOOD
[2018-03-27] MEDS: Sodium Chloride 0.9% 1,000 ML IV SCH (03:42)
[2018-03-27 03:44] LABS: BASO # 0.02 K/mm3 (0.0-2.0); BASO % 0.2 % (0.0-3.0); EOS # 0.4 (0.0-0.7); EOS % 4.4 % (1.5-5.0); GRAN # 5.38 (1.4-6.5); GRAN % 56.5 % (50.0-68.0); HEMOGLOBIN 12.4 g/dL (14.0-18.0); LYMPH # 3.2 (1.2-3.4); MEAN CELL VOLUME 85.2 fl (80.0-105.0); MEAN CORPUSCULAR HEMOGLOBIN 28.3 pg (25.0-35.0); MEAN CORPUSCULAR HGB CONC 33.2 g/dl (31.0-37.0); MEAN PLATELET VOLUME 9.4 fl (7.0-11.0); MONO # 0.5 (0.1-0.6); MONO % 4.9 % (1.0-6.0); RBC 4.38 10^6/uL (3.5-6.1); RED CELL DISTRIBUTION WIDTH 13.2 % (11.5-14.5); WHITE BLOOD COUNT 9.5 10^3/uL (4.5-11.0)
[2018-03-27 03:52] LABS: ALB/GLOB RATIO 1.4 (1.1-1.8); ALBUMIN 4.5 g/dL (3.0-4.8); ALT/SGPT 41 U/L (7-56); AMYLASE 328 U/L (35-125); AST/SGOT 38 U/L (17-59); BLOOD UREA NITROGEN 26 mg/dL (7-21); CALCIUM 9.8 mg/dL (8.4-10.5); GFR NON-AFRICAN AMERICAN 50; LIPASE 280 U/L (23-300)
[2018-03-27 03:54] LABS: INR 0.97; PARTIAL THROMBOPLASTIN TIME 20.5 Seconds (25.1-36.5); PROTHROMBIN TIME 11.1 SECONDS (9.4-12.5)
[2018-03-27 04:02] LABS: TROPONIN I 0.03 ng/mL
[2018-03-27 05:24] LABS: URINE BILIRUBIN NEGATIVE (NEGATIVE); URINE BLOOD NEGATIVE (NEGATIVE); URINE GLUCOSE (UA) NEGATIVE (NEGATIVE); URINE LEUKOCYTE ESTERASE NEGATIVE Leu/uL (NEGATIVE); URINE PROTEIN NEGATIVE mg/dL (<30 mg/dL); URINE UROBILINOGEN 0.2 E.U./dL (<1 E.U./dL)
[2018-03-27 05:28] LABS: URINE APPEARANCE CLEAR (CLEAR); URINE COLOR YELLOW (YELLOW)
[2018-03-27] MEDS ORDERED: Sodium Chloride 0.9% 1,000 ML IV STA (05:43)
[2018-03-27] MEDS ORDERED: Morphine 2 mg/ml ISec IVP STA (05:47)
--- NOTE | 2018-03-27 08:39 | CARD ---
APPROVED REPORT Date of service: 03/27/2018 EKG Measurement Heart [id number] <Conclusion> Normal sinus rhythm T wave abnormality, consider lateral ischemia Abnormal ECG
--- NOTE | 2018-03-27 10:21 | CT ---
Date of service: 03/27/2018 PROCEDURE: CT Abdomen and Pelvis without intravenous contrast HISTORY: llq pain COMPARISON: 09/12/2013 TECHNIQUE: Without contrast. Contrast dose: Radiation dose: Total exam DLP = 696.16 mGy-cm. This CT exam was performed using one or more of the following dose reduction techniques: Automated exposure control, adjustment of the mA and/or kV according to patient size, and/or use of iterative reconstruction technique. FINDINGS: LOWER THORAX: Unremarkable. LIVER: Unremarkable. No gross lesion or ductal dilatation. GALLBLADDER AND BILE DUCTS: Multiple gallstones PANCREAS: Unremarkable. No gross lesion or ductal dilatation. SPLEEN: Unremarkable. ADRENALS: Unremarkable. No mass. KIDNEYS AND URETERS: Unremarkable. No hydronephrosis. No solid mass. VASCULATURE: Unremarkable. No aortic aneurysm. No aortic atherosclerotic calcification or mural plaque present. BOWEL: There is mild mural thickening throughout the colon especially in the descending colon. Fluid levels are also seen. Findings are consistent with colitis. APPENDIX: Unremarkable. Normal appendix. PERITONEUM: Unremarkable. No free fluid. No free air. LYMPH NODES: Unremarkable. No enlarged lymph nodes. BLADDER: Unremarkable. REPRODUCTIVE: Unremarkable. BONES: No acute fracture. OTHER FINDINGS: The report concurs with the preliminary [facility] report IMPRESSION: There is mild mural thickening throughout the colon especially in the descending colon. Fluid levels are also seen. Findings are consistent with colitis. Multiple gallstones
[2018-03-27] MEDS: Sodium Chloride 0.9% 1,000 ML IV STA ×2 (10:31→17:10)
[2018-03-27] MEDS: cefTRIAXone 1 gm 1 GM/100 ML BAG IVPB SCH (10:31)
--- NOTE | 2018-03-27 10:55 | HP ---
DATE OF EXAM: 03/27/2018 HISTORY OF PRESENT ILLNESS: She is 72-year-old male admitted to the hospital with rectal bleeding. He was complaining of the left lower quadrant pain associated with nausea, vomiting and diarrhea. CT abdomen showed thick wall fluid filled colon. Involvement of all the segments compatible with diffuse colitis, left side of colon is severely involved, calcified gallstones. He has history of prostate cancer status post proctectomy currently in remission. History of DVT in the past, no active issues. History of cardiac disease, coronary artery disease status post CABG. No chest pain. No active issues has been stable. Denies any fever, no cough with expectoration. No chest pain. PAST MEDICAL HISTORY: Prostate cancer, DVT, hypertension, hyperlipidemia, peripheral artery peripheral neuropathy, coronary artery disease, diabetes mellitus type 2. PAST SURGICAL HISTORY: Prostate cancer, prostatectomy and bypass surgery. . SOCIAL HISTORY: Former smoker. No history of alcohol abuse. Lives at home. ALLERGIES: NO KNOWN DRUG ALLERGIES. HOME MEDICATION: Metformin 1000 mg p.o. twice a day, gabapentin 300 p.o. three times a day, Amaryl 2 mg p.o. twice a day, lisinopril 10 mg daily, Zocor 80 mg daily, B12. REVIEW OF SYSTEMS: As per HPI. Rest of 12-point review of systems reviewed negative. PHYSICAL EXAMINATION: GENERAL: Comfortable in bed in no acute distress. VITAL SIGNS: Stable. Temperature 98.4, heart rate 73 per minute, blood pressure 140/69, respiratory rate 18 per minute, oxygen saturation 98% room air. HEENT: Pallor positive. NECK: No lymphadenopathy. CHEST: Air entry present and equal bilaterally. No added sounds. CARDIOVASCULAR: S1, S2 normal. No murmur. No gallop. ABDOMEN: Mild tenderness left lower quadrant. No rebound tenderness. No rigidity. No guarding. EXTREMITIES: No edema. CENTRAL NERVOUS SYSTEM: Alert and oriented x3. No focal sensory or motor deficit. CT abdomen as under HPI. EKG normal sinus rhythm at 8 beats per hour, nonspecific ST-T changes. ASSESSMENT: 1. Pancolitis. 2. Rectal bleeding. 3. Anemia. 4. Coronary artery disease. 5. Diabetes mellitus type 2. 6. History of prostate cancer in remission. PLAN: He will be admitted to the hospital, n.p.o. by mouth IV fluid at 80 mL an hour, Protonix 40 mg IV daily, ceftriaxone 1 g daily, and Flagyl 500 mg every 8 hours. We will continue to monitor for bleeding. Hemoglobin/hematocrit stable now, mild anemia, hemoglobin 12.4. GI consultation Dr. Hernandez requested, surgery consultation Dr. Johnson requested. ID consultation Dr. Patricio requested for pancolitis. Renal functions showed elevated creatinine of 1.4. We will continue to monitor that. Electrolytes are within normal limits. Pain control with morphine 2 mg IV every 4 hours p.r.n. We would antidiabetic medications, Zocor 80 mg daily and meclizine p.r.n. if needed. Kelly Weber MD
[2018-03-27] MEDS: metroNIDAZOLE IV 500 mg/100 ml 500 MG/100 ML BAG IVPB SCH ×3 (11:35→23:10)
--- NOTE | 2018-03-27 12:15 | CP.PCM.CON ---
Past Patient History - Infectious Disease Hx of Infectious Diseases: None - Tetanus Immunizations Tetanus Immunization: Unknown - Past Social History Smoking Status: Former Smoker - CARDIAC Hx Cardiac Disorders: Yes Hx Heart Attack: Yes Hx Hypertension: Yes Other/Comment: x4 stents - PULMONARY Hx Respiratory Disorders: No - NEUROLOGICAL Hx Neurological Disorder: Yes Hx Vertigo: Yes Other/Comment: Neuropathy - HEENT Hx HEENT Problems: Yes (eyeglassees) - RENAL Hx Chronic Kidney Disease: No - ENDOCRINE/METABOLIC Hx Endocrine Disorders: Yes Hx Diabetes Mellitus Type 2: Yes - HEMATOLOGICAL/ONCOLOGICAL Hx Blood Transfusions: No Hx Blood Transfusion Reaction: No - INTEGUMENTARY Hx Dermatological Problems: No - MUSCULOSKELETAL/RHEUMATOLOGICAL Hx Falls: No - GASTROINTESTINAL Hx Gastrointestinal Disorders: Yes Hx Diverticulitis: Yes - GENITOURINARY/GYNECOLOGICAL Hx Genitourinary Disorders: Yes Hx Prostate Problems: Yes (cancer) - PSYCHIATRIC Hx Depression: No Hx Emotional Abuse: No Hx Physical Abuse: No Hx Substance Use: No - SURGICAL HISTORY Hx Coronary Artery Bypass Graft: Yes (2002) Other/Comment: prostatectomy,penile implant - ANESTHESIA Hx Anesthesia: Yes Hx Anesthesia Reactions: No Hx Malignant Hyperthermia: No Meds Allergies/Adverse Reactions: Allergies Allergy/AdvReac Type Severity Reaction Status Date / Time No Known Allergies Allergy Verified 02/10/18 11:22 - Medications Medications: Current Medications Acetaminophen (Tylenol 325mg Tab) 650 mg PO Q4H PRN PRN Reason: Fever >100.5 F Atorvastatin Calcium (Lipitor) 40 mg PO DAILY [facility] Sodium Chloride (Sodium Chloride 0.9%) 1,000 mls @ 80 mls/hr IV .[id number] [facility] Last Admin: 03/27/18 03:42 Dose: 80 mls/hr Sodium Chloride (Sodium Chloride 0.9%) 1,000 mls @ 80 mls/hr IV .[id number] STA Stop: 03/27/18 22:23 Last Admin: 03/27/18 10:31 Dose: 80 mls/hr Ceftriaxone Sodium (Rocephin 1 Gram Ivpb) 1 gm in 100 mls @ 100 mls/hr IVPB DAILY [facility]; Protocol Last Admin: 03/27/18 10:31 Dose: 100 mls/hr Metronidazole (Flagyl) 500 mg in 100 mls @ 100 mls/hr IVPB Q8 [facility]; Protocol Last Admin: 03/27/18 10:30 Dose: 100 mls/hr Morphine Sulfate (Morphine) 2 mg IM Q4H PRN PRN Reason: Pain, moderate (4-7) Ondansetron HCl (Zofran Inj) 4 mg IVP Q6H PRN PRN Reason: Nausea/Vomiting Last Admin: 03/27/18 05:54 Dose: 4 mg Pantoprazole Sodium (Protonix Inj) 40 mg IVP DAILY [facility] Last Admin: 03/27/18 10:31 Dose: 40 mg Results - Vital Signs Recent Vital Signs: Last Vital Signs Temp 98.4 F 03/27/18 08:04 Pulse 73 03/27/18 08:04 Resp 18 03/27/18 08:04 BP 141/69 03/27/18 08:04 Pulse Ox 97 03/27/18 08:04 - Labs Result Diagrams: 03/27/18 03:30 03/27/18 03:30 Labs: Laboratory Results - last 24 hr 03/27/18 03/27/18 03/27/18 03:27 03:30 03:30 WBC 9.5 RBC 4.38 Hgb 12.4 L Hct 37.3 L MCV 85.2 MCH 28.3 MCHC 33.2 RDW 13.2 Plt Count 209 MPV 9.4 Gran % 56.5 Lymph % (Auto) 34.0 [place] % (Auto) 4.9 Eos % (Auto) 4.4 Baso % (Auto) 0.2 Gran # 5.38 Lymph # (Auto) 3.2 [place] # (Auto) 0.5 Eos # (Auto) 0.4 Baso # (Auto) 0.02 PT 11.1 INR 0.97 APTT 20.5 L Sodium Potassium Chloride Carbon Dioxide Anion Gap BUN Creatinine Est GFR ( Amer) Est GFR (Non-Af Amer) POC Glucose (mg/dL) 223 H Random Glucose Calcium Total Bilirubin AST ALT Alkaline Phosphatase Lactate Dehydrogenase Total Creatine Kinase Troponin I Total Protein Albumin Globulin Albumin/Globulin Ratio Amylase Lipase Urine Color Urine Appearance Urine pH Ur Specific [place] Urine Protein Urine Glucose (UA) Urine Ketones Urine Blood Urine Nitrate Urine Bilirubin Urine Urobilinogen Ur Leukocyte Esterase Blood Type Antibody Screen BBK History Checked 03/27/18 03/27/18 03/27/18 03:30 05:00 06:00 WBC RBC Hgb Hct MCV MCH MCHC RDW Plt Count MPV Gran % Lymph % (Auto) [place] % (Auto) Eos % (Auto) Baso % (Auto) Gran # Lymph # (Auto) [place] # (Auto) Eos # (Auto) Baso # (Auto) PT INR APTT Sodium 139 Potassium 4.4 Chloride 102 Carbon Dioxide 27 Anion Gap 15 BUN 26 H Creatinine 1.4 Est GFR ( Amer) > 60 Est GFR (Non-Af Amer) 50 POC Glucose (mg/dL) Random Glucose 225 H Calcium 9.8 Total Bilirubin 0.5 AST 38 ALT 41 Alkaline Phosphatase 116 Lactate Dehydrogenase 476 Total Creatine Kinase 206 Troponin I 0.03 D Total Protein 7.8 Albumin 4.5 Globulin 3.3 Albumin/Globulin Ratio 1.4 Amylase 328 H Lipase 280 Urine Color Yellow Urine Appearance Clear Urine pH 6.0 Ur Specific [place] 1.015 Urine Protein Negative Urine Glucose (UA) Negative Urine Ketones Negative Urine Blood Negative Urine Nitrate Negative Urine Bilirubin Negative Urine Urobilinogen 0.2 Ur Leukocyte Esterase Negative Blood Type B POSITIVE Antibody Screen Negative BBK History Checked Patient has bt
--- NOTE | 2018-03-27 12:28 | CP.PCM.PN ---
<Radha Anguiano - Last Filed: 03/27/18 12:19> Subjective - Date & Time of Evaluation Date of Evaluation: 03/27/18 Time of Evaluation: 08:00 - Subjective Subjective: GI Fellow PGY5 Consult Note This is a 72 year old male with a past medical history of diabetes, CAD s/p CABG, dyslipidemia, HTN who presents with complaints of abdominal pain, bloody diarrhea, N/V. Pt reports he ate food at a Irish restaurant at 7pm yesterday and at 1:30am awake with severe abdominal pain, N/V. In the ER he had two episodes of bloody diarrhea. Pt notes no one else got sick from the food. Prior to this he was feeling fine with no GI issues. This am he reports abdominal pain. Colonoscopy 3yrs ago with was normal per pt and needs repeat in 5yrs, no polyps reported. ROS: A 12pt ROS was negtive except as above PMH: As stated in HPI PSH: Prostate surgery and CABG Social: smoked in the past for 3 years; denies alcohol or illicit drug use Objective - Vital Signs/Intake and Output Vital Signs (last 24 hours): Temp Pulse Resp BP Pulse Ox 98.4 F 73 18 141/69 97 03/27/18 08:04 03/27/18 08:04 03/27/18 08:04 03/27/18 08:04 03/27/18 08:04 - Medications Medications: Current Medications Acetaminophen (Tylenol 325mg Tab) 650 mg PO Q4H PRN PRN Reason: Fever >100.5 F Atorvastatin Calcium (Lipitor) 40 mg PO DAILY [facility] Sodium Chloride (Sodium Chloride 0.9%) 1,000 mls @ 80 mls/hr IV .[id number] [facility] Last Admin: 03/27/18 03:42 Dose: 80 mls/hr Sodium Chloride (Sodium Chloride 0.9%) 1,000 mls @ 80 mls/hr IV .[id number] STA Stop: 03/27/18 22:23 Last Admin: 03/27/18 10:31 Dose: 80 mls/hr Ceftriaxone Sodium (Rocephin 1 Gram Ivpb) 1 gm in 100 mls @ 100 mls/hr IVPB DAILY [facility]; Protocol Last Admin: 03/27/18 10:31 Dose: 100 mls/hr Metronidazole (Flagyl) 500 mg in 100 mls @ 100 mls/hr IVPB Q8 [facility]; Protocol Last Admin: 03/27/18 10:30 Dose: 100 mls/hr Morphine Sulfate (Morphine) 2 mg IM Q4H PRN PRN Reason: Pain, moderate (4-7) Ondansetron HCl (Zofran Inj) 4 mg IVP Q6H PRN PRN Reason: Nausea/Vomiting Last Admin: 03/27/18 05:54 Dose: 4 mg Pantoprazole Sodium (Protonix Inj) 40 mg IVP DAILY [facility] Last Admin: 03/27/18 10:31 Dose: 40 mg - Labs Labs: 03/27/18 03:30 03/27/18 03:30 PT 11.1 SECONDS (9.4-12.5) 03/27/18 03:30 INR 0.97 03/27/18 03:30 APTT 20.5 Seconds (25.1-36.5) L 03/27/18 03:30 - Constitutional Appears: Non-toxic, No Acute Distress - Eye Exam Eye Exam: EOMI, Normal appearance, PERRL Pupil Exam: PERRL - ENT Exam ENT Exam: Mucous Membranes Moist, Normal Exam - Neck Exam Neck Exam: Full ROM - Respiratory Exam Respiratory Exam: Clear to Ausculation Bilateral, NORMAL BREATHING PATTERN - Cardiovascular Exam Cardiovascular Exam: RRR, +S1, +S2 - GI/Abdominal Exam GI & Abdominal Exam: Soft, Tenderness, Normal Bowel Sounds. absent: Distended, Rigid - Rectal Exam Rectal Exam: Deferred - Extremities Exam Extremities Exam: Full ROM, Normal Inspection - Neurological Exam Neurological Exam: Alert, Awake, Oriented x3 - Psychiatric Exam Psychiatric exam: Normal Affect, Normal Mood - Skin Skin Exam: Dry, Intact, Normal Color, Warm Assessment and Plan - Assessment and Plan (Free Text) Assessment: 1. Abdominal Pain 2. Bloody Diarrhea 3. Pancolitis ddx: Infectious vs Ischemic colitis 4. hx of HTN, HLD, DM -Continue supportive care with pain control and antiemetics -Stool infectious workup incuding C.diff -CT reviewed without any po/IV contrast, read as pancolitis -Monitor H/H -Serial abdominal exams -No plan plan for endoscope evaluation at this time -Continue to monitor closely <Miya Hernandez V - Last Filed: 03/27/18 23:33> Objective - Vital Signs/Intake and Output Vital Signs (last 24 hours): Temp Pulse Resp BP Pulse Ox 98.8 F 84 18 138/79 94 L 03/27/18 22:00 03/27/18 22:00 03/27/18 22:00 03/27/18 22:00 03/27/18 22:00 - Medications Medications: Current Medications Acetaminophen (Tylenol 325mg Tab) 650 mg PO Q4H PRN PRN Reason: Fever >100.5 F Atorvastatin Calcium (Lipitor) 40 mg PO DAILY [facility] Sodium Chloride (Sodium Chloride 0.9%) 1,000 mls @ 80 mls/hr IV .[id number] [facility] Last Admin: 03/27/18 03:42 Dose: 80 mls/hr Ceftriaxone Sodium (Rocephin 1 Gram Ivpb) 1 gm in 100 mls @ 100 mls/hr IVPB D AILY [facility]; Protocol Last Admin: 03/27/18 10:31 Dose: 100 mls/hr Metronidazole (Flagyl) 500 mg in 100 mls @ 100 mls/hr IVPB Q8 [facility]; Protocol Last Admin: 03/27/18 23:10 Dose: 100 mls/hr Morphine Sulfate (Morphine) 2 mg IM Q4H PRN PRN Reason: Pain, moderate (4-7) Last Admin: 03/27/18 15:25 Dose: 2 mg Ondansetron HCl (Zofran Inj) 4 mg IVP Q6H PRN PRN Reason: Nausea/Vomiting Last Admin: 03/27/18 05:54 Dose: 4 mg Pantoprazole Sodium (Protonix Inj) 40 mg IVP DAILY [facility] Last Admin: 03/27/18 10:31 Dose: 40 mg Simethicone (Mylicon Liq) 40 mg PO QID PRN PRN Reason: Gas Pain Last Admin: 03/27/18 19:58 Dose: 40 mg - Labs Labs: 03/27/18 03:30 03/27/18 03:30 PT 11.1 SECONDS (9.4-12.5) 03/27/18 03:30 INR 0.97 03/27/18 03:30 APTT 20.5 Seconds (25.1-36.5) L 03/27/18 03:30 Attending/Attestation - Attestation I have personally seen and examined this patient.: Yes I have fully participated in the care of the patient.: Yes I have reviewed all pertinent clinical information, including history, physical exam and plan: Yes Notes (Text): This is an addendum to GI consult report dictated by the GI Fellow.The patient was seen and examined earlier. Medical records, lab studies, imagings were reviewed. Last 24 hours events reviewed. Agreed with the above treatment plan as outlined in GI Fellow 's notes with the addition of the following Acute onset of left-sided abdominal pain and bleeding per rectum CT shows thickening of the left colon the leg mainly descending The differential diagnosis should include infectious colitis ischemia less likely IBD On examination patient does havmild tenderness in the left sidee abdomen Continue the antibiotics Clear liquid explained patient's been followed by GI, patient mentioned he had a multiple colonoscopies and endoscopi Complete 10-14 days of antibc course Follow-up with the GI Start on clear liquid diet 03/27/18 23:31
--- NOTE | 2018-03-27 14:03 | CON ---
DATE: 03/27/2018 HISTORY OF PRESENT ILLNESS: The patient is a 72-year-old pleasant man. VITAL SIGNS: Stable, normal, afebrile. Blood pressure normal, 180 pounds. LABORATORY DATA: White count is 9, hemoglobin 12, platelets 209. Coags normal. BUN a little elevated at 26 and amylase elevated at 328, normal lipase. CAT scan is reviewed. The official report showed colitis, reviewing report, I am not sure that it is possible to make a real diagnosis of colitis without oral contrast. There is no stranding on the either side, though wall of the colon is possible a little bit enlarged, without contrast it is very difficult. The history though is remarkable for having blood in the stool on multiple occasions with diarrhea. PHYSICAL EXAMINATION CHEST AND HEART: Unremarkable. ABDOMEN: Soft, nontender except in the left lower quadrant with mild point tenderness noted. There is no guarding or rebound. IMPRESSION: Infectious colitis, possibly Clostridium difficile but also possibly etc. We will follow peripherally but without surgical intent. Antibiotics are appropriate. Presently being treated with metronidazole and Rocephin. Brian Johnson MD
[2018-03-27] MEDS: Morphine 2 mg/ml ISec IM PRN (15:25)
[2018-03-27] MEDS ORDERED: Simethicone 40 mg/0.6 ml Liquid (30 ml) PO PRN (19:42)
[2018-03-28] MEDS: Sodium Chloride 0.9% 1,000 ML IV SCH (05:17)
[2018-03-28] MEDS: metroNIDAZOLE IV 500 mg/100 ml 500 MG/100 ML BAG IVPB SCH ×2 (05:17→15:10)
[2018-03-28 07:07] LABS: BASO # 0.02 K/mm3 (0.0-2.0); BASO % 0.1 % (0.0-3.0); EOS # 0.3 (0.0-0.7); EOS % 1.9 % (1.5-5.0); GRAN # 10.31 (1.4-6.5); GRAN % 73.5 % (50.0-68.0); HEMOGLOBIN 11.5 g/dL (14.0-18.0); LYMPH # 2.5 (1.2-3.4); LYMPH % 17.7 % (22.0-35.0); MEAN CELL VOLUME 84.5 fl (80.0-105.0); MEAN CORPUSCULAR HEMOGLOBIN 27.9 pg (25.0-35.0); MONO % 6.8 % (1.0-6.0); RBC 4.12 10^6/uL (3.5-6.1); RED CELL DISTRIBUTION WIDTH 13.4 % (11.5-14.5)
[2018-03-28 07:26] LABS: ALB/GLOB RATIO 1.1 (1.1-1.8); ALBUMIN 3.5 g/dL (3.0-4.8); ALT/SGPT 35 U/L (7-56); AST/SGOT 26 U/L (17-59); BLOOD UREA NITROGEN 14 mg/dL (7-21); CALCIUM 8.9 mg/dL (8.4-10.5); GFR NON-AFRICAN AMERICAN > 60
[2018-03-28 07:27] LABS: HDL CHOLESTEROL 42 mg/dL (29-60)
[2018-03-28 07:38] LABS: LDL CHOLESTEROL 73 mg/dL (0-129)
--- NOTE | 2018-03-28 07:59 | CP.PCM.PN ---
Subjective - Date & Time of Evaluation Date of Evaluation: 03/28/18 Time of Evaluation: 07:52 - Subjective Subjective: PGY-1 General Surgery Progress Note for Dr. oJhnson Patient seen and examined at bedside. No acute events overnight per nursing. Patient c/o small amounts of blood in the stool, having mild abdominal pain, and gas. Otherwise no acute complaints at this time. Patient denies nausea, vomiting, diarrhea, chest pain, dizziness. Objective - Vital Signs/Intake and Output Vital Signs (last 24 hours): Temp Pulse Resp BP Pulse Ox 98.8 F 84 18 138/79 94 L 03/27/18 22:00 03/27/18 22:00 03/27/18 22:00 03/27/18 22:00 03/27/18 22:00 Intake and Output: 03/28/18 03/28/18 06:59 18:59 Intake Total 2280 Output Total 1 Balance 2279 - Medications Medications: Current Medications Acetaminophen (Tylenol 325mg Tab) 650 mg PO Q4H PRN PRN Reason: Fever >100.5 F Atorvastatin Calcium (Lipitor) 40 mg PO DAILY [facility] Sodium Chloride (Sodium Chloride 0.9%) 1,000 mls @ 80 mls/hr IV .[id number] [facility] Last Admin: 03/28/18 05:17 Dose: 80 mls/hr Ceftriaxone Sodium (Rocephin 1 Gram Ivpb) 1 gm in 100 mls @ 100 mls/hr IVPB DAILY [facility]; Protocol Last Admin: 03/27/18 10:31 Dose: 100 mls/hr Metronidazole (Flagyl) 500 mg in 100 mls @ 100 mls/hr IVPB Q8 [facility]; Protocol Last Admin: 03/28/18 05:17 Dose: 100 mls/hr Insulin Human Lispro (Humalog Low) 0 units SC ACHS [facility]; Protocol Morphine Sulfate (Morphine) 2 mg IM Q4H PRN PRN Reason: Pain, moderate (4-7) Last Admin: 03/27/18 15:25 Dose: 2 mg Ondansetron HCl (Zofran Inj) 4 mg IVP Q6H PRN PRN Reason: Nausea/Vomiting Last Admin: 03/27/18 05:54 Dose: 4 mg Pantoprazole Sodium (Protonix Inj) 40 mg IVP DAILY [facility] Last Admin: 12/09/18 10:31 Dose: 40 mg Simethicone (Mylicon Liq) 40 mg PO QID PRN PRN Reason: Gas Pain Last Admin: 03/27/18 19:58 Dose: 40 mg - Labs Labs: 03/28/18 06:30 03/28/18 06:30 PT 11.1 SECONDS (9.4-12.5) 03/27/18 03:30 INR 0.97 03/27/18 03:30 APTT 20.5 Seconds (25.1-36.5) L 03/27/18 03:30 - Constitutional Appears: Non-toxic, No Acute Distress - Head Exam Head Exam: ATRAUMATIC, NORMAL INSPECTION - Eye Exam Eye Exam: EOMI, Normal appearance - ENT Exam ENT Exam: Mucous Membranes Moist - Respiratory Exam Respiratory Exam: Clear to Ausculation Bilateral, NORMAL BREATHING PATTERN - Cardiovascular Exam Cardiovascular Exam: +S1, +S2 - GI/Abdominal Exam GI & Abdominal Exam: Soft, Tenderness, Normal Bowel Sounds - Neurological Exam Neurological Exam: Alert, Awake, Oriented x3 - Psychiatric Exam Psychiatric exam: Normal Affect, Normal Mood - Skin Skin Exam: Dry, Intact, Normal Color, Warm Assessment and Plan - Assessment and Plan (Free Text) Assessment: 72 year old male presenting with abdominal pain, colitis on CT most likely infectious in nature - Continue IV ABx - Currently on Flagyl and Rocephin - Continue clear liquid diet - Continue pain managment - Currently Morphine 2 mg IM Q6 prn - No acute surgical intervention at this time - Will continue to follow Wayne Bradley, PGY-1
[2018-03-28] MEDS ORDERED: Magnesium Sulfate 2 gm/50 ml 2 GM/50 ML BAG IVPB ONE ×2 (08:20→11:20)
--- NOTE | 2018-03-28 08:46 | CP.PCM.PN ---
<Domonique Sung - Last Filed: 03/28/18 10:12> Subjective - Date & Time of Evaluation Date of Evaluation: 03/28/18 Time of Evaluation: 07:30 - Subjective Subjective: Pgy3 Medicine note for Dr. Bell Patient seen and examined at bedside. Nursing reported 3 loose BM overnight with blood. Patient continues to complain of LLQ abdominal pain and gas this AM. He reports the pain has improved since admission [when it was constant], however it is intermittent now and still 10/10 in intensity. Patient denied any complaints of nausea/vomiting. He has an appetite and is eager to eat. Patient was counseled on the importance of bowel rest at this time and that he is to be started on a liquid diet. Otherwise patient denied fever, chills, headache, dizziness, chest pain, SOB, cough, pain/swelling in his legs b/l. Patient is eager to be discharged. Objective - Vital Signs/Intake and Output Vital Signs (last 24 hours): Temp Pulse Resp BP Pulse Ox 98.8 F 84 18 138/79 94 L 03/27/18 22:00 03/27/18 22:00 03/27/18 22:00 03/27/18 22:00 03/27/18 22:00 Intake and Output: 03/28/18 03/28/18 06:59 18:59 Intake Total 2280 Output Total 1 Balance 2279 - Medications Medications: Current Medications Acetaminophen (Tylenol 325mg Tab) 650 mg PO Q4H PRN PRN Reason: Fever >100.5 F Atorvastatin Calcium (Lipitor) 40 mg PO DAILY [facility] Sodium Chloride (Sodium Chloride 0.9%) 1,000 mls @ 80 mls/hr IV .[id number] [facility] Last Admin: 03/28/18 05:17 Dose: 80 mls/hr Ceftriaxone Sodium (Rocephin 1 Gram Ivpb) 1 gm in 100 mls @ 100 mls/hr IVPB DAILY [facility]; Protocol Last Admin: 03/27/18 10:31 Dose: 100 mls/hr Metronidazole (Flagyl) 500 mg in 100 mls @ 100 mls/hr IVPB Q8 [facility]; Protocol Last Admin: 03/28/18 05:17 Dose: 100 mls/hr Magnesium Sulfate (Magnesium Sulfate 2 Gm/50 Ml Water) 2 gm in 50 mls @ 50 mls/hr IVPB ONCE ONE Stop: 03/28/18 09:19 Insulin Human Lispro (Humalog Low) 0 units SC ACHS [facility]; Protocol Morphine Sulfate (Morphine) 2 mg IM Q4H PRN PRN Reason: Pain, moderate (4-7) Last Admin: 03/27/18 15:25 Dose: 2 mg Ondansetron HCl (Zofran Inj) 4 mg IVP Q6H PRN PRN Reason: Nausea/Vomiting Last Admin: 03/27/18 05:54 Dose: 4 mg Pantoprazole Sodium (Protonix Inj) 40 mg IVP DAILY [facility] Last Admin: 03/27/18 10:31 Dose: 40 mg Simethicone (Mylicon Liq) 40 mg PO QID PRN PRN Reason: Gas Pain Last Admin: 03/27/18 19:58 Dose: 40 mg - Labs Labs: 03/28/18 06:30 03/28/18 06:30 PT 11.1 SECONDS (9.4-12.5) 03/27/18 03:30 INR 0.97 03/27/18 03:30 APTT 20.5 Seconds (25.1-36.5) L 03/27/18 03:30 - Constitutional Appears: Non-toxic, No Acute Distress - Head Exam Head Exam: ATRAUMATIC, NORMAL INSPECTION, NORMOCEPHALIC - Eye Exam Eye Exam: EOMI, Normal appearance. absent: Conjunctival injection, Scleral icterus - ENT Exam ENT Exam: Mucous Membranes Moist - Neck Exam Neck Exam: Full ROM - Respiratory Exam Respiratory Exam: Clear to Ausculation Bilateral, NORMAL BREATHING PATTERN. absent: Accessory Muscle Use, Rales, Rhonchi, Wheezes, Respiratory Distress - Cardiovascular Exam Cardiovascular Exam: +S1, +S2. absent: Murmur - GI/Abdominal Exam GI & Abdominal Exam: Soft, Tenderness (LLQ). absent: Firm, Rigid, Rebound - Rectal Exam Rectal Exam: Deferred - Extremities Exam Extremities Exam: Normal Capillary Refill, Normal Inspection. absent: Pedal Edema, Tenderness - Neurological Exam Neurological Exam: Alert, Awake, CN II-XII Intact, Oriented x3 - Psychiatric Exam Psychiatric exam: Normal Affect, Normal Mood - Skin Skin Exam: Dry, Intact, Normal Color, Warm Assessment and Plan - Assessment and Plan (Free Text) Assessment: -Acute colitis -Bloody diarrhea- acute -Abdominal pain- acute -HTN- controlled -HLD- controlled -DM2- chronic -CAD s/p CABG- chronic -PAD- chronic -DVT- chronic -Peripheral neuropathy- chronic -Prostate ca s/p prostatectomy- chronic Plan: Patient continues to have pain this AM. CTAP remarkable for mild mural thickening throughout colon especially in descending colon; fluid levels seen; consistent with colitis. Continue Rocephin and Flagyl (day 2), antiemetics, and pain medications. Stool infx workup pending- will f/u. Continue monitoring H&H and Electrolytes. Surgery reccs appreciated- no acute intervention at this time. GI reccs appreciated- patient will need to be scoped 6 weeks after acute flare subsides. PO hypoglycemic home meds for DM2 on hold at this time- started patient on low dose RISS and accuchecks. Will f/u hgbA1c. Continue PO neurontin. Patient is on gentle hydration NS@80 and has liquid diet ordered- ADAT. Will continue serial abdominal exams and monitor patient closely. Patient can be OOB as tolerated. Discussed with Dr. Ray Sung PGY3 <Ravin Bell S - Last Filed: 03/28/18 16:56> Objective - Vital Signs/Intake and Output Vital Signs (last 24 hours): Temp Pulse Resp BP Pulse Ox 97.9 F 89 20 151/63 H 98 03/28/18 14:00 03/28/18 14:00 03/28/18 14:00 03/28/18 14:00 03/28/18 14:00 Intake and Output: 03/28/18 03/28/18 06:59 18:59 Intake Total 2280 Output Total 1 Balance 2279 - Medications Medications: Current Medications Acetaminophen (Tylenol 325mg Tab) 650 mg PO Q4H PRN PRN Reason: Fever >100.5 F Atorvastatin Calcium (Lipitor) 40 mg PO DAILY [facility] Last Admin: 03/28/18 10:43 Dose: 40 mg Gabapentin (Neurontin) 300 mg PO TID [facility]; Protocol Last Admin: 03/28/18 15:10 Dose: 300 mg Sodium Chloride (Sodium Chloride 0.9%) 1,000 mls @ 80 mls/hr IV .[id number] [facility] Last Admin: 03/28/18 05:17 Dose: 80 mls/hr Ceftriaxone Sodium (Rocephin 1 Gram Ivpb) 1 gm in 100 mls @ 100 mls/hr IVPB ROSIE LY [facility]; Protocol Last Admin: 03/28/18 10:43 Dose: 100 mls/hr Metronidazole (Flagyl) 500 mg in 100 mls @ 100 mls/hr IVPB Q8 [facility]; Protocol Last Admin: 03/28/18 15:10 Dose: 100 mls/hr Insulin Human Lispro (Humalog Low) 0 units SC ACHS [facility]; Protocol Last Admin: 03/28/18 12:00 Dose: 2 unit Morphine Sulfate (Morphine) 2 mg IM Q4H PRN PRN Reason: Pain, moderate (4-7) Last Admin: 03/28/18 11:52 Dose: 2 mg Ondansetron HCl (Zofran Inj) 4 mg IVP Q6H PRN PRN Reason: Nausea/Vomiting Last Admin: 03/27/18 05:54 Dose: 4 mg Pantoprazole Sodium (Protonix Ec Tab) 40 mg PO ACB [facility] Simethicone (Mylicon Liq) 40 mg PO QID PRN PRN Reason: Gas Pain Last Admin: 03/27/18 19:58 Dose: 40 mg - Labs Labs: 03/28/18 06:30 03/28/18 06:30 PT 11.1 SECONDS (9.4-12.5) 03/27/18 03:30 INR 0.97 03/27/18 03:30 APTT 20.5 Seconds (25.1-36.5) L 03/27/18 03:30 Assessment and Plan - Assessment and Plan (Free Text) Plan: Pt seen and examined. I reviewed the note of the medical assisting instructor and I agree with the note including the assessment and plan. I reviewed the medications and last labs. Pt with acute colitis. He is on a liq diet and is getting Rocephin/Flagyl for Abx. He has abd pain and it is controlled with Morphine. He has dyslipidemia and is on Atorvastatin. He will continue with Neurontin for his peripheral neuropathy. He is on IVF with NS. GI following the pt and notes reviewed. Pt will need colonoscopy as outpt. He has DM-2 and is on an ISS with Insulin coverage.
[2018-03-28] MEDS: Insulin Lispro (humaLOG) LOW Coverage SC SCH ×4 (09:21→22:57)
[2018-03-28] MEDS: cefTRIAXone 1 gm 1 GM/100 ML BAG IVPB SCH (10:43)
[2018-03-28] MEDS: Morphine 2 mg/ml ISec IM PRN (11:52)
--- NOTE | 2018-03-28 16:15 | CP.PCM.PN ---
<Ed Feng - Last Filed: 03/28/18 20:10> Subjective - Date & Time of Evaluation Date of Evaluation: 03/28/18 Time of Evaluation: 11:20 - Subjective Subjective: PGY6 GI Fellow Progress Note Patient seen and examined bedside this morning. The patient continues to have abdominal discomfort, particularly when trying to pass flatus. Tolerating liquid diet but minimal appetite. Admits to passing blood clots this morning. 12 system ROS performed and negative except where stated Objective - Vital Signs/Intake and Output Vital Signs (last 24 hours): Temp Pulse Resp BP Pulse Ox 97.9 F 89 20 151/63 H 98 03/28/18 14:00 03/28/18 14:00 03/28/18 14:00 03/28/18 14:00 03/28/18 14:00 Intake and Output: 03/28/18 03/28/18 06:59 18:59 Intake Total 2280 Output Total 1 Balance 2279 - Medications Medications: Current Medications Acetaminophen (Tylenol 325mg Tab) 650 mg PO Q4H PRN PRN Reason: Fever >100.5 F Atorvastatin Calcium (Lipitor) 40 mg PO DAILY [facility] Last Admin: 03/28/18 10:43 Dose: 40 mg Gabapentin (Neurontin) 300 mg PO TID ANA; Protocol Last Admin: 03/28/18 15:10 Dose: 300 mg Sodium Chloride (Sodium Chloride 0.9%) 1,000 mls @ 80 mls/hr IV .[id number] [facility] Last Admin: 03/28/18 05:17 Dose: 80 mls/hr Ceftriaxone Sodium (Rocephin 1 Gram Ivpb) 1 gm in 100 mls @ 100 mls/hr IVPB DAILY [facility]; Protocol Last Admin: 03/28/18 10:43 Dose: 100 mls/hr Metronidazole (Flagyl) 500 mg in 100 mls @ 100 mls/hr IVPB Q8 ANA; Protocol Last Admin: 03/28/18 15:10 Dose: 100 mls/hr Insulin Human Lispro (Humalog Low) 0 units SC ACHS [facility]; Protocol Last Admin: 03/28/18 12:00 Dose: 2 unit Morphine Sulfate (Morphine) 2 mg IM Q4H PRN PRN Reason: Pain, moderate (4-7) Last Admin: 03/28/18 11:52 Dose: 2 mg Ondansetron HCl (Zofran Inj) 4 mg IVP Q6H PRN PRN Reason: Nausea/Vomiting Last Admin: 03/27/18 05:54 Dose: 4 mg Pantoprazole Sodium (Protonix Ec Tab) 40 mg PO ACB ANA Simethicone (Mylicon Liq) 40 mg PO QID PRN PRN Reason: Gas Pain Last Admin: 03/27/18 19:58 Dose: 40 mg - Labs Labs: 03/28/18 06:30 03/28/18 06:30 PT 11.1 SECONDS (9.4-12.5) 03/27/18 03:30 INR 0.97 03/27/18 03:30 APTT 20.5 Seconds (25.1-36.5) L 03/27/18 03:30 - Constitutional Appears: Non-toxic, No Acute Distress - Eye Exam Eye Exam: EOMI, PERRL - ENT Exam ENT Exam: Mucous Membranes Moist - Respiratory Exam Respiratory Exam: Clear to Ausculation Bilateral. absent: Rales, Rhonchi, Wheezes - Cardiovascular Exam Cardiovascular Exam: RRR, +S1, +S2 - GI/Abdominal Exam GI & Abdominal Exam: Soft, Tenderness (diffusely), Normal Bowel Sounds. absent: Distended, Firm, Guarding, Rigid, Organomegaly - Extremities Exam Extremities Exam: Normal Inspection. absent: Pedal Edema - Neurological Exam Neurological Exam: Alert, Awake, Oriented x3 - Psychiatric Exam Psychiatric exam: Normal Affect, Normal Mood - Skin Skin Exam: Dry, Warm Assessment and Plan - Assessment and Plan (Free Text) Assessment: Patient is a 72yo male with PMHx significant for DM, CAD s/p CABG, dyslipidemia and HTN who presented with abdominal pain and bloody diarrhea -Pancolitis -Diarrhea and hematochezia Plan: -Continue supportive care with antibiotics, IVF and analgesia -Awaiting stool cultures -C. diff negative -Liquid diet, advance as tolerated -No plan for endoscopic interventions at this time -Follow clinical course <Miya Hernandez V - Last Filed: 03/28/18 23:21> Objective - Vital Signs/Intake and Output Vital Signs (last 24 hours): Temp Pulse Resp BP Pulse Ox 98.5 F 71 18 117/69 97 03/28/18 22:00 03/28/18 22:00 03/28/18 22:00 03/28/18 22:00 03/28/18 22:00 Intake and Output: 03/28/18 03/29/18 18:59 06:59 Intake Total 360 Balance 360 - Medications Medications: Current Medications Acetaminophen (Tylenol 325mg Tab) 650 mg PO Q4H PRN PRN Reason: Fever >100.5 F Atorvastatin Calcium (Lipitor) 40 mg PO DAILY [facility] Last Admin: 03/28/18 10:43 Dose: 40 mg Gabapentin (Neurontin) 300 mg PO TID [facility]; Protocol Last Admin: 03/28/18 15:10 Dose: 300 mg Sodium Chloride (Sodium Chloride 0.9%) 1,000 mls @ 80 mls/hr IV .[id number] [facility] Last Admin: 03/28/18 05:17 Dose: 80 mls/hr Ceftriaxone Sodium (Rocephin 1 Gram Ivpb) 1 gm in 100 mls @ 100 mls/hr IVPB D AILY [facility]; Protocol Last Admin: 03/28/18 10:43 Dose: 100 mls/hr Metronidazole (Flagyl) 500 mg in 100 mls @ 100 mls/hr IVPB Q8 [facility]; Protocol Last Admin: 03/28/18 15:10 Dose: 100 mls/hr Insulin Human Lispro (Humalog Low) 0 units SC ACHS [facility]; Protocol Last Admin: 03/28/18 22:57 Dose: Not Given Morphine Sulfate (Morphine) 2 mg IM Q4H PRN PRN Reason: Pain, moderate (4-7) Last Admin: 03/28/18 11:52 Dose: 2 mg Ondansetron HCl (Zofran Inj) 4 mg IVP Q6H PRN PRN Reason: Nausea/Vomiting Last Admin: 03/27/18 05:54 Dose: 4 mg Pantoprazole Sodium (Protonix Ec Tab) 40 mg PO ACB ANA Simethicone (Mylicon Liq) 40 mg PO QID PRN PRN Reason: Gas Pain Last Admin: 03/27/18 19:58 Dose: 40 mg - Labs Labs: 03/28/18 06:30 03/28/18 06:30 PT 11.1 SECONDS (9.4-12.5) 03/27/18 03:30 INR 0.97 03/27/18 03:30 APTT 20.5 Seconds (25.1-36.5) L 03/27/18 03:30 Attending/Attestation - Attestation I have personally seen and examined this patient.: Yes I have fully participated in the care of the patient.: Yes I have reviewed all pertinent clinical information, including history, physical exam and plan: Yes Notes (Text): This is an addendum to GI progress report dictated by the GI Fellow. The patient was seen and examined earlier. Medical records, lab studies, imagings were reviewed. Last 24 hours events reviewed. Agreed with the above treatment plan as outlined in GI Fellow 's notes with the addition of the following clinically more suggestive of acute colitis IBD,ischemic colitis said differential diagnosis Continue the antibiotics gradually advance her diet Elective colonoscopy evaluation 03/28/18 23:19
[2018-03-29] MEDS: metroNIDAZOLE IV 500 mg/100 ml 500 MG/100 ML BAG IVPB SCH ×3 (02:53→21:19)
--- NOTE | 2018-03-29 05:15 | CP.PCM.PN ---
<Domonique Sung - Last Filed: 03/29/18 09:28> Subjective - Date & Time of Evaluation Date of Evaluation: 03/29/18 Time of Evaluation: 07:30 - Subjective Subjective: Pgy3 Medicine note for Dr. Bell Patient seen and examined. Nursing reported no acute events overnight. Patient resting comfortably this AM and denied any more episodes of diarrhea or blood in his stool. He tolerated liquid diet well and reported his pain had much improved since admission. Patient denied having any BM this morning and is making good urine. Patient is eager to go home. Denied fever, chills, headache, dizziness, chest pain, palpitations, SOB, cough, nausea, vomiting, pain/swelling in his legs b/l. 12 point ROS reviewed and negative unless aforementioned. Objective - Vital Signs/Intake and Output Vital Signs (last 24 hours): Temp Pulse Resp BP Pulse Ox 98.5 F 71 18 117/69 97 03/28/18 22:00 03/28/18 22:00 03/28/18 22:00 03/28/18 22:00 03/28/18 22:00 Intake and Output: 03/28/18 03/29/18 18:59 06:59 Intake Total 360 Balance 360 - Medications Medications: Current Medications Acetaminophen (Tylenol 325mg Tab) 650 mg PO Q4H PRN PRN Reason: Fever >100.5 F Atorvastatin Calcium (Lipitor) 40 mg PO DAILY [facility] Last Admin: 03/28/18 10:43 Dose: 40 mg Gabapentin (Neurontin) 300 mg PO TID [facility]; Protocol Last Admin: 03/28/18 15:10 Dose: 300 mg Sodium Chloride (Sodium Chloride 0.9%) 1,000 mls @ 80 mls/hr IV .[id number] [facility] Last Admin: 03/28/18 05:17 Dose: 80 mls/hr Ceftriaxone Sodium (Rocephin 1 Gram Ivpb) 1 gm in 100 mls @ 100 mls/hr IVPB DAILY [facility]; Protocol Last Admin: 03/28/18 10:43 Dose: 100 mls/hr Metronidazole (Flagyl) 500 mg in 100 mls @ 100 mls/hr IVPB Q8 [facility]; Protocol Last Admin: 03/29/18 02:53 Dose: 100 mls/hr Insulin Human Lispro (Humalog Low) 0 units SC ACHS [facility]; Protocol Last Admin: 03/28/18 22:57 Dose: Not Given Morphine Sulfate (Morphine) 2 mg IM Q4H PRN PRN Reason: Pain, moderate (4-7) Last Admin: 03/28/18 11:52 Dose: 2 mg Ondansetron HCl (Zofran Inj) 4 mg IVP Q6H PRN PRN Reason: Nausea/Vomiting Last Admin: 03/27/18 05:54 Dose: 4 mg Pantoprazole Sodium (Protonix Ec Tab) 40 mg PO ACB ANA Simethicone (Mylicon Liq) 40 mg PO QID PRN PRN Reason: Gas Pain Last Admin: 03/27/18 19:58 Dose: 40 mg - Labs Labs: 03/28/18 06:30 03/28/18 06:30 PT 11.1 SECONDS (9.4-12.5) 03/27/18 03:30 INR 0.97 03/27/18 03:30 APTT 20.5 Seconds (25.1-36.5) L 03/27/18 03:30 - Constitutional Appears: Non-toxic, No Acute Distress - Head Exam Head Exam: ATRAUMATIC, NORMAL INSPECTION, NORMOCEPHALIC - Eye Exam Eye Exam: EOMI, Normal appearance. absent: Conjunctival injection, Scleral icterus - ENT Exam ENT Exam: Mucous Membranes Moist - Neck Exam Neck Exam: Full ROM - Respiratory Exam Respiratory Exam: Clear to Ausculation Bilateral, NORMAL BREATHING PATTERN. absent: Accessory Muscle Use, Rales, Rhonchi, Wheezes, Respiratory Distress - Cardiovascular Exam Cardiovascular Exam: +S1, +S2. absent: Murmur - GI/Abdominal Exam GI & Abdominal Exam: Soft, Tenderness (LLQ ), Normal Bowel Sounds. absent: Firm, Guarding, Rigid - Rectal Exam Rectal Exam: Deferred - Extremities Exam Extremities Exam: Normal Capillary Refill, Normal Inspection. absent: Pedal Edema - Neurological Exam Neurological Exam: Alert, Awake, Oriented x3 - Psychiatric Exam Psychiatric exam: Normal Affect, Normal Mood - Skin Skin Exam: Dry, Intact, Normal Color, Warm Assessment and Plan - Assessment and Plan (Free Text) Assessment: -Acute colitis- improving -HTN- controlled -HLD- controlled -DM2- chronic -CAD s/p CABG- chronic -PAD- chronic -DVT- chronic -Peripheral neuropathy- chronic -Prostate ca s/p prostatectomy- chronic Plan: Bloody diarrhea resolved this AM and abdominal pain has improved. Patient devulcanizer tender on abdominal exam. Patient tolerating CLD- will advance to full. Continue fluids, IV abx [Rocephin, Flagyl day 3], and analgesia. C Diff negative; stool culture pending. Blood cx prelim x 1 negative. Continue monitoring H&H and Electrolytes. Patient will need GI scope as elective outpatient. HgbA1c 8 noted- continue low dose RISS and accuchecks. Continue home neurontin. Will continue serial abdominal exams and monitor patient closely. Patient can be OOB as tolerated. GI and Surgery reccs appreciated. Discussed with Dr. Ray Sung PGY3 <Ravin Bell S - Last Filed: 03/29/18 14:00> Objective - Vital Signs/Intake and Output Vital Signs (last 24 hours): Temp Pulse Resp BP Pulse Ox 98.4 F 64 20 118/61 98 03/29/18 07:00 03/29/18 07:00 03/29/18 07:00 03/29/18 07:00 03/29/18 07:00 Intake and Output: 03/29/18 03/29/18 06:59 18:59 Intake Total 360 Balance 360 - Medications Medications: Current Medications Acetaminophen (Tylenol 325mg Tab) 650 mg PO Q4H PRN PRN Reason: Fever >100.5 F Atorvastatin Calcium (Lipitor) 40 mg PO DAILY [facility] Last Admin: 03/29/18 10:10 Dose: 40 mg Gabapentin (Neurontin) 300 mg PO TID [facility]; Protocol Last Admin: 03/29/18 09:47 Dose: 300 mg Ceftriaxone Sodium (Rocephin 1 Gram Ivpb) 1 gm in 100 mls @ 100 mls/hr IVPB DAILY [facility]; Protocol Last Admin: 03/29/18 09:47 Dose: 100 mls/hr Metronidazole (Flagyl) 500 mg in 100 mls @ 100 mls/hr IVPB Q8 [facility]; Protocol Last Admin: 03/29/18 02:53 Dose: 100 mls/hr Insulin Human Lispro (Humalog Low) 0 units SC ACHS [facility]; Protocol Last Admin: 03/29/18 12:10 Dose: 2 unit Morphine Sulfate (Morphine) 2 mg IM Q4H PRN PRN Reason: Pain, moderate (4-7) Last Admin: 03/28/18 11:52 Dose: 2 mg Ondansetron HCl (Zofran Inj) 4 mg IVP Q6H PRN PRN Reason: Nausea/Vomiting Last Admin: 03/27/18 05:54 Dose: 4 mg Pantoprazole Sodium (Protonix Ec Tab) 40 mg PO ACB ANA Last Admin: 03/29/18 07:52 Dose: 40 mg Simethicone (Mylicon Liq) 40 mg PO QID PRN PRN Reason: Gas Pain Last Admin: 03/27/18 19:58 Dose: 40 mg - Labs Labs: 03/29/18 06:20 03/29/18 06:20 PT 11.1 SECONDS (9.4-12.5) 03/27/18 03:30 INR 0.97 03/27/18 03:30 APTT 20.5 Seconds (25.1-36.5) L 03/27/18 03:30 Assessment and Plan - Assessment and Plan (Free Text) Plan: Pt seen and examined. I reviewed the note of the medical receptionist and I agree with the note including the assessment and plan. I reviewed the medications and last labs. Pt with colitis and is on IV Rocephin and Flagyl. Pain is better controlled. He is tolerating the liq diet. Will need to be on a regular diet prior to discharge. Pt is being followed by GI. HBA1C is mildly elevated. He is on Insulin sliding scale with coverage for his DM-2. Will need elective colonoscopy. follow labs.
[2018-03-29 06:59] LABS: BASO # 0.02 K/mm3 (0.0-2.0); BASO % 0.2 % (0.0-3.0); EOS # 0.3 (0.0-0.7); EOS % 3.1 % (1.5-5.0); GRAN # 7.39 (1.4-6.5); GRAN % 72.7 % (50.0-68.0); HEMOGLOBIN 10.5 g/dL (14.0-18.0); LYMPH # 1.9 (1.2-3.4); LYMPH % 18.5 % (22.0-35.0); MEAN CELL VOLUME 84.7 fl (80.0-105.0); MEAN CORPUSCULAR HEMOGLOBIN 28.2 pg (25.0-35.0); MEAN CORPUSCULAR HGB CONC 33.3 g/dl (31.0-37.0); MEAN PLATELET VOLUME 8.7 fl (7.0-11.0); MONO # 0.6 (0.1-0.6); MONO % 5.5 % (1.0-6.0); RBC 3.72 10^6/uL (3.5-6.1); RED CELL DISTRIBUTION WIDTH 13.3 % (11.5-14.5); WHITE BLOOD COUNT 10.2 10^3/uL (4.5-11.0)
[2018-03-29 07:19] LABS: ALT/SGPT 32 U/L (7-56); AST/SGOT 19 U/L (17-59); BLOOD UREA NITROGEN 8 mg/dL (7-21); CALCIUM 8.6 mg/dL (8.4-10.5); GFR NON-AFRICAN AMERICAN > 60
[2018-03-29] MEDS: Pantoprazole 40 mg EC Tab PO SCH (07:52)
[2018-03-29] MEDS: Insulin Lispro (humaLOG) LOW Coverage SC SCH ×4 (07:52→21:40)
--- NOTE | 2018-03-29 09:16 | CP.PCM.PN ---
Subjective - Date & Time of Evaluation Date of Evaluation: 03/29/18 Time of Evaluation: 09:16 - Subjective Subjective: Marcos Onofre DO - PGY1 Internal Medicine Marketing Production Coordinator - Surgical Progress Note for Dr. Johnson Patient was seen and examined at bedside this morning. He denies any bloody BM, N/V dysuria; he reports his abdominal pain is significantly improving at this time. Tolerating liquid diet well consumed 100% of CLD dinner last night. Objective - Vital Signs/Intake and Output Vital Signs (last 24 hours): Temp Pulse Resp BP Pulse Ox 98.4 F 64 20 118/61 98 03/29/18 07:00 03/29/18 07:00 03/29/18 07:00 03/29/18 07:00 03/29/18 07:00 Intake and Output: 03/29/18 03/29/18 06:59 18:59 Intake Total 360 Balance 360 - Medications Medications: Current Medications Acetaminophen (Tylenol 325mg Tab) 650 mg PO Q4H PRN PRN Reason: Fever >100.5 F Atorvastatin Calcium (Lipitor) 40 mg PO DAILY [facility] Last Admin: 03/28/18 10:43 Dose: 40 mg Gabapentin (Neurontin) 300 mg PO TID [facility]; Protocol Last Admin: 03/28/18 15:10 Dose: 300 mg Ceftriaxone Sodium (Rocephin 1 Gram Ivpb) 1 gm in 100 mls @ 100 mls/hr IVPB DAILY [facility]; Protocol Last Admin: 03/28/18 10:43 Dose: 100 mls/hr Metronidazole (Flagyl) 500 mg in 100 mls @ 100 mls/hr IVPB Q8 [facility]; Protocol Last Admin: 03/29/18 02:53 Dose: 100 mls/hr Insulin Human Lispro (Humalog Low) 0 units SC ACHS [facility]; Protocol Last Admin: 03/29/18 07:52 Dose: 1 unit Morphine Sulfate (Morphine) 2 mg IM Q4H PRN PRN Reason: Pain, moderate (4-7) Last Admin: 03/28/18 11:52 Dose: 2 mg Ondansetron HCl (Zofran Inj) 4 mg IVP Q6H PRN PRN Reason: Nausea/Vomiting Last Admin: 03/27/18 05:54 Dose: 4 mg Pantoprazole Sodium (Protonix Ec Tab) 40 mg PO ACB ANA Last Admin: 03/29/18 07:52 Dose: 40 mg Simethicone (Mylicon Liq) 40 mg PO QID PRN PRN Reason: Gas Pain Last Admin: 03/27/18 19:58 Dose: 40 mg - Labs Labs: 03/29/18 06:20 03/29/18 06:20 PT 11.1 SECONDS (9.4-12.5) 03/27/18 03:30 INR 0.97 03/27/18 03:30 APTT 20.5 Seconds (25.1-36.5) L 03/27/18 03:30 - Constitutional Appears: Non-toxic, No Acute Distress - Head Exam Head Exam: ATRAUMATIC, NORMAL INSPECTION - Eye Exam Eye Exam: EOMI, Normal appearance - ENT Exam ENT Exam: Mucous Membranes Moist - Respiratory Exam Respiratory Exam: Clear to Ausculation Bilateral, NORMAL BREATHING PATTERN - Cardiovascular Exam Cardiovascular Exam: +S1, +S2 - GI/Abdominal Exam GI & Abdominal Exam: Soft, Tenderness, Normal Bowel Sounds - Neurological Exam Neurological Exam: Alert, Awake, Oriented x3 - Psychiatric Exam Psychiatric exam: Normal Affect, Normal Mood - Skin Skin Exam: Dry, Intact, Normal Color, Warm Assessment and Plan - Assessment and Plan (Free Text) Assessment: 72M c/o abd pain; found to have pancolitis on CTAP Plan: -C/w IV ABX -Tolerating CLD well; can ADAT -C/w PRN Analgesic Rx -No acute Surgical Intervention at this time -Further recs per Dr. Johnson
[2018-03-29] MEDS: cefTRIAXone 1 gm 1 GM/100 ML BAG IVPB SCH (09:47)
--- NOTE | 2018-03-29 10:36 | CP.PCM.APN ---
Subjective - Date & Time of Evaluation Date of Evaluation: 03/29/18 Time of Evaluation: 08:00 - Subjective Subjective: Pt seen and examined at bedside. In no acute distress. No acute events overnight. Denies abdominal pain, nausea or vomiting. He is tolerating clear liquid diet. Review of Systems - Cardiovascular Cardiovascular: absent: As Per HPI, Acrocyanosis, Chest Pain, Chest Pain at Rest, Chest Pain with Activity, Claudication, Diaphoresis, Dyspnea, Dyspnea on Exertion, Edema, Irregular Heart Rhythm, Pain Radiating to Arm/Neck/Jaw, Leg Edema, Leg Ulcers, Lightheadedness, Orthopnea, Palpitations, Paroxysmal Nocturnal Dyspnea, Pedal Edema, Radiating Pain, Rapid Heart Rate, Slow Heart Rate, Syncope, Other - Respiratory Respiratory: absent: As Per HPI, Cough, Dyspnea, Hemoptysis, Dyspnea on Exertion, Wheezing, Snoring, Stridor, Pain on Inspiration, Chest Congestion, Excessive Mucous Production, Change in Mucous Color, Pain with Coughing, Other - Gastrointestinal Gastrointestinal: As Per HPI Objective - Vital Signs/Intake and Output Vital Signs (last 24 hours): Temp Pulse Resp BP Pulse Ox 98.4 F 64 20 118/61 98 03/29/18 07:00 03/29/18 07:00 03/29/18 07:00 03/29/18 07:00 03/29/18 07:00 Intake and Output: 03/29/18 03/29/18 06:59 18:59 Intake Total 360 Balance 360 - Medications Medications: Current Medications Acetaminophen (Tylenol 325mg Tab) 650 mg PO Q4H PRN PRN Reason: Fever >100.5 F Atorvastatin Calcium (Lipitor) 40 mg PO DAILY [facility] Last Admin: 03/28/18 10:43 Dose: 40 mg Gabapentin (Neurontin) 300 mg PO TID [facility]; Protocol Last Admin: 03/29/18 09:47 Dose: 300 mg Ceftriaxone Sodium (Rocephin 1 Gram Ivpb) 1 gm in 100 mls @ 100 mls/hr IVPB DAILY [facility]; Protocol Last Admin: 03/29/18 09:47 Dose: 100 mls/hr Metronidazole (Flagyl) 500 mg in 100 mls @ 100 mls/hr IVPB Q8 [facility]; Protocol Last Admin: 03/29/18 02:53 Dose: 100 mls/hr Insulin Human Lispro (Humalog Low) 0 units SC ACHS [facility]; Protocol Last Admin: 03/29/18 07:52 Dose: 1 unit Morphine Sulfate (Morphine) 2 mg IM Q4H PRN PRN Reason: Pain, moderate (4-7) Last Admin: 03/28/18 11:52 Dose: 2 mg Ondansetron HCl (Zofran Inj) 4 mg IVP Q6H PRN PRN Reason: Nausea/Vomiting Last Admin: 03/27/18 05:54 Dose: 4 mg Pantoprazole Sodium (Protonix Ec Tab) 40 mg PO ACB ANA Last Admin: 03/29/18 07:52 Dose: 40 mg Simethicone (Mylicon Liq) 40 mg PO QID PRN PRN Reason: Gas Pain Last Admin: 03/27/18 19:58 Dose: 40 mg - Labs Labs: 03/29/18 06:20 03/29/18 06:20 PT 11.1 SECONDS (9.4-12.5) 03/27/18 03:30 INR 0.97 03/27/18 03:30 APTT 20.5 Seconds (25.1-36.5) L 03/27/18 03:30 - Constitutional Appears: Well, No Acute Distress - Head Exam Head Exam: ATRAUMATIC, NORMAL INSPECTION - Eye Exam Eye Exam: Normal appearance - Neck Exam Neck Exam: Full ROM - Respiratory Exam Respiratory Exam: Clear to Ausculation Bilateral - Cardiovascular Exam Cardiovascular Exam: REGULAR RHYTHM, +S1, +S2 - GI/Abdominal Exam GI & Abdominal Exam: Soft, Normal Bowel Sounds - Rectal Exam Rectal Exam: Deferred - Neurological Exam Neurological Exam: Alert, Awake, Oriented x3 Assessment and Plan - Assessment and Plan (Free Text) Assessment: Pt is a 72 y.o. male with pmhx of DM, CAD s/p cabg, dyslipidemia, HTN, DVT, prostate CA s/p prostatectomy, sciatica, vertigo who presented in ED w/ c/o LLQ abdominal pain, n/v, bloody diarrhea. He was found to have colitis. Plan: Diet will be advanced as tolerated C/W IV abx Surgery and GI on consult Per MD, possible DC in AM if pt tolerates diet and remains medically stable Meds per MAR Will continue to follow
--- NOTE | 2018-03-29 15:52 | CP.PCM.PN ---
<Ed Feng - Last Filed: 03/29/18 16:28> Subjective - Date & Time of Evaluation Date of Evaluation: 03/29/18 Time of Evaluation: 13:45 - Subjective Subjective: PGY6 GI Fellow Progress Note Patient seen and examined bedside this afternoon. The patient states that he is feeling significantly better today. Passing flatus without difficulty. Had normal bowel movement this morning without any blood or clots. Tolerating soft diet without difficulty. 12 system ROS performed and negative except where stated Objective - Vital Signs/Intake and Output Vital Signs (last 24 hours): Temp Pulse Resp BP Pulse Ox 98.4 F 64 20 118/61 98 03/29/18 07:00 03/29/18 07:00 03/29/18 07:00 03/29/18 07:00 03/29/18 07:00 Intake and Output: 03/29/18 03/29/18 06:59 18:59 Intake Total 360 Balance 360 - Medications Medications: Current Medications Acetaminophen (Tylenol 325mg Tab) 650 mg PO Q4H PRN PRN Reason: Fever >100.5 F Atorvastatin Calcium (Lipitor) 40 mg PO DAILY ANA Last Admin: 03/29/18 10:10 Dose: 40 mg Gabapentin (Neurontin) 300 mg PO TID ANA; Protocol Last Admin: 03/29/18 14:42 Dose: 300 mg Ceftriaxone Sodium (Rocephin 1 Gram Ivpb) 1 gm in 100 mls @ 100 mls/hr IVPB DAILY ANA; Protocol Last Admin: 03/29/18 09:47 Dose: 100 mls/hr Metronidazole (Flagyl) 500 mg in 100 mls @ 100 mls/hr IVPB Q8 ANA; Protocol Last Admin: 03/29/18 14:42 Dose: 100 mls/hr Insulin Human Lispro (Humalog Low) 0 units SC ACHS ANA; Protocol Last Admin: 03/29/18 12:10 Dose: 2 unit Morphine Sulfate (Morphine) 2 mg IM Q4H PRN PRN Reason: Pain, moderate (4-7) Last Admin: 03/28/18 11:52 Dose: 2 mg Ondansetron HCl (Zofran Inj) 4 mg IVP Q6H PRN PRN Reason: Nausea/Vomiting Last Admin: 03/27/18 05:54 Dose: 4 mg Pantoprazole Sodium (Protonix Ec Tab) 40 mg PO ACB ANA Last Admin: 03/29/18 07:52 Dose: 40 mg Simethicone (Mylicon Liq) 40 mg PO QID PRN PRN Reason: Gas Pain Last Admin: 03/27/18 19:58 Dose: 40 mg - Labs Labs: 03/29/18 06:20 03/29/18 06:20 PT 11.1 SECONDS (9.4-12.5) 03/27/18 03:30 INR 0.97 03/27/18 03:30 APTT 20.5 Seconds (25.1-36.5) L 03/27/18 03:30 - Constitutional Appears: Non-toxic, No Acute Distress - Eye Exam Eye Exam: EOMI, PERRL - ENT Exam ENT Exam: Mucous Membranes Moist - Respiratory Exam Respiratory Exam: Clear to Ausculation Bilateral. absent: Rales, Rhonchi, Wheezes - Cardiovascular Exam Cardiovascular Exam: RRR, +S1, +S2 - GI/Abdominal Exam GI & Abdominal Exam: Soft, Normal Bowel Sounds. absent: Distended, Firm, Guarding, Rigid, Tenderness, Organomegaly - Extremities Exam Extremities Exam: Normal Inspection. absent: Pedal Edema - Neurological Exam Neurological Exam: Alert, Awake, Oriented x3 - Psychiatric Exam Psychiatric exam: Normal Affect, Normal Mood - Skin Skin Exam: Dry, Warm Assessment and Plan - Assessment and Plan (Free Text) Assessment: Patient is a 72yo male with PMHx significant for DM, CAD s/p CABG, dyslipidemia and HTN who presented with abdominal pain and bloody diarrhea -Pancolitis -Diarrhea and hematochezia Plan: -Significant improvement in the last 24H -Would continue and complete 10 day course of antibiotics -Tolerating soft diet; goal to advance to low fiber diet -Will require outpatient evaluation and follow up - likely colonoscopy in 6 weeks once acute issues resolve -If tolerating PO and no significant pain, OK for D/C from GI standpoint <Miya Hernandez V - Last Filed: 03/29/18 23:06> Objective - Vital Signs/Intake and Output Vital Signs (last 24 hours): Temp Pulse Resp BP Pulse Ox 98.4 F 74 18 113/64 97 03/29/18 22:31 03/29/18 22:31 03/29/18 22:31 03/29/18 22:31 03/29/18 22:31 - Medications Medications: Current Medications Acetaminophen (Tylenol 325mg Tab) 650 mg PO Q4H PRN PRN Reason: Fever >100.5 F Atorvastatin Calcium (Lipitor) 40 mg PO DAILY [facility] Last Admin: 03/29/18 10:10 Dose: 40 mg Gabapentin (Neurontin) 300 mg PO TID ANA; Protocol Last Admin: 03/29/18 17:48 Dose: 300 mg Ceftriaxone Sodium (Rocephin 1 Gram Ivpb) 1 gm in 100 mls @ 100 mls/hr IVPB DAILY [facility]; Protocol Last Admin: 03/29/18 09:47 Dose: 100 mls/hr Metronidazole (Flagyl) 500 mg in 100 mls @ 100 mls/hr IVPB Q8 ANA; Protocol Last Admin: 03/29/18 21:19 Dose: 100 mls/hr Insulin Human Lispro (Humalog Low) 0 units SC ACHS ANA; Protocol Last Admin: 03/29/18 21:40 Dose: Not Given Morphine Sulfate (Morphine) 2 mg IM Q4H PRN PRN Reason: Pain, moderate (4-7) Last Admin: 03/28/18 11:52 Dose: 2 mg Ondansetron HCl (Zofran Inj) 4 mg IVP Q6H PRN PRN Reason: Nausea/Vomiting Last Admin: 03/27/18 05:54 Dose: 4 mg Pantoprazole Sodium (Protonix Ec Tab) 40 mg PO ACB ANA Last Admin: 03/29/18 07:52 Dose: 40 mg Simethicone (Mylicon Liq) 40 mg PO QID PRN PRN Reason: Gas Pain Last Admin: 03/27/18 19:58 Dose: 40 mg - Labs Labs: 03/29/18 06:20 03/29/18 06:20 PT 11.1 SECONDS (9.4-12.5) 03/27/18 03:30 INR 0.97 03/27/18 03:30 APTT 20.5 Seconds (25.1-36.5) L 03/27/18 03:30 Attending/Attestation - Attestation I have personally seen and examined this patient.: Yes I have fully participated in the care of the patient.: Yes I have reviewed all pertinent clinical information, including history, physical exam and plan: Yes Notes (Text): This is an addendum to GI progress report dictated by the GI Fellow.The patient was seen and examined earlier. Medical records, lab studies, imagings were reviewed. Last 24 hours events reviewed. Agreed with the above treatment plan as outlined in GI Fellow 's notes with the addition of the following 03/29/18 23:06
[2018-03-30] MEDS: metroNIDAZOLE IV 500 mg/100 ml 500 MG/100 ML BAG IVPB SCH ×2 (06:07→14:17)
[2018-03-30 07:16] LABS: BASO # 0.02 K/mm3 (0.0-2.0); BASO % 0.3 % (0.0-3.0); EOS # 0.3 (0.0-0.7); EOS % 4.4 % (1.5-5.0); GRAN # 5.04 (1.4-6.5); GRAN % 66.4 % (50.0-68.0); HEMOGLOBIN 10.4 g/dL (14.0-18.0); LYMPH # 1.7 (1.2-3.4); LYMPH % 21.9 % (22.0-35.0); MEAN CELL VOLUME 84.1 fl (80.0-105.0); MEAN CORPUSCULAR HEMOGLOBIN 28.1 pg (25.0-35.0); MEAN CORPUSCULAR HGB CONC 33.4 g/dl (31.0-37.0); MEAN PLATELET VOLUME 9.1 fl (7.0-11.0); MONO # 0.5 (0.1-0.6); RBC 3.7 10^6/uL (3.5-6.1); RED CELL DISTRIBUTION WIDTH 13.2 % (11.5-14.5); WHITE BLOOD COUNT 7.6 10^3/uL (4.5-11.0)
[2018-03-30 07:38] LABS: ALBUMIN 3.1 g/dL (3.0-4.8); ALT/SGPT 31 U/L (7-56); AST/SGOT 26 U/L (17-59); BLOOD UREA NITROGEN 11 mg/dL (7-21); CALCIUM 8.7 mg/dL (8.4-10.5); GFR NON-AFRICAN AMERICAN > 60
[2018-03-30] MEDS: Insulin Lispro (humaLOG) LOW Coverage SC SCH ×3 (07:54→17:17)
[2018-03-30] MEDS: Pantoprazole 40 mg EC Tab PO SCH (07:55)
[2018-03-30 09:40] VITALS: O2SAT 96
[2018-03-30] MEDS: cefTRIAXone 1 gm 1 GM/100 ML BAG IVPB SCH (10:00)
--- NOTE | 2018-03-30 10:50 | CP.PCM.DIS ---
Provider - Provider Date of Admission: 03/28/18 14:17 Attending physician: Ravin Bell MD Primary care physician: Dr. Grover Consults: 03/27/18 06:04 Consult [Physician Consult] Routine Comment: Consulting Provider: Miya Hernandez V Consulting Physician: Miya Hernandez V Reason for Consult: colitis Consult [Physician Consult] Routine Comment: Consulting Provider: Brian Johnson Consulting Physician: Brian Johnson Reason for Consult: colitis Time Spent in preparation of Discharge (in minutes): 35 Diagnosis - Discharge Diagnosis (1) Colitis Status: Acute Hospital Course - Lab Results Lab Results: Micro Results 03/27/18 05:45 Blood-Venous Blood Culture - Preliminary NO GROWTH AFTER 3 DAYS 03/28/18 06:25 Stool C. difficile Antigen & Toxins A,B - Final Most Recent Lab Values WBC 7.6 10^3/uL (4.5-11.0) D 03/30/18 06:45 RBC 3.70 10^6/uL (3.5-6.1) 03/30/18 06:45 Hgb 10.4 g/dL (14.0-18.0) L 03/30/18 06:45 Hct 31.1 % (42.0-52.0) L 03/30/18 06:45 MCV 84.1 fl (80.0-105.0) 03/30/18 06:45 MCH 28.1 pg (25.0-35.0) 03/30/18 06:45 MCHC 33.4 g/dl (31.0-37.0) 03/30/18 06:45 RDW 13.2 % (11.5-14.5) 03/30/18 06:45 Plt Count 184 10^3/uL (120.0-450.0) 03/30/18 06:45 MPV 9.1 fl (7.0-11.0) 03/30/18 06:45 Gran % 66.4 % (50.0-68.0) 03/30/18 06:45 Lymph % (Auto) 21.9 % (22.0-35.0) L 03/30/18 06:45 [place] % (Auto) 7.0 % (1.0-6.0) H 03/30/18 06:45 Eos % (Auto) 4.4 % (1.5-5.0) 03/30/18 06:45 Baso % (Auto) 0.3 % (0.0-3.0) 03/30/18 06:45 Gran # 5.04 (1.4-6.5) 03/30/18 06:45 Lymph # (Auto) 1.7 (1.2-3.4) 03/30/18 06:45 [place]field # (Auto) 0.5 (0.1-0.6) 03/30/18 06:45 Eos # (Auto) 0.3 (0.0-0.7) 03/30/18 06:45 Baso # (Auto) 0.02 K/mm3 (0.0-2.0) 03/30/18 06:45 PT 11.1 SECONDS (9.4-12.5) 03/27/18 03:30 INR 0.97 03/27/18 03:30 APTT 20.5 Seconds (25.1-36.5) L 03/27/18 03:30 Sodium 135 mmol/L (132-148) 03/30/18 06:45 Potassium 4.1 mmol/L (3.6-5.0) 03/30/18 06:45 Chloride 104 mmol/L (98-107) 03/30/18 06:45 Carbon Dioxide 25 mmol/L (21-33) 03/30/18 06:45 Anion Gap 10 (10-20) 03/30/18 06:45 BUN 11 mg/dL (7-21) 03/30/18 06:45 Creatinine 0.9 mg/dl (0.8-1.5) 03/30/18 06:45 Est GFR ( Amer) > 60 03/30/18 06:45 Est GFR (Non-Af Amer) > 60 03/30/18 06:45 POC Glucose (mg/dL) 195 mg/dL (65-110) H 03/30/18 06:26 Random Glucose 218 mg/dL (70-110) H 03/30/18 06:45 Hemoglobin A1c 8.0 % (4.2-6.5) H 03/28/18 07:00 Calcium 8.7 mg/dL (8.4-10.5) 03/30/18 06:45 Phosphorus 3.0 mg/dL (2.5-4.5) 03/28/18 06:30 Magnesium 1.4 mg/dL (1.7-2.2) L 03/28/18 06:30 Total Bilirubin 0.3 mg/dL (0.2-1.3) 03/30/18 06:45 AST 26 U/L (17-59) 03/30/18 06:45 ALT 31 U/L (7-56) 03/30/18 06:45 Alkaline Phosphatase 66 U/L (38-126) 03/30/18 06:45 Lactate Dehydrogenase 476 U/L (333-699) 03/27/18 03:30 Total Creatine Kinase 206 U/L (35-230) 03/27/18 03:30 Troponin I 0.03 ng/mL D 03/27/18 03:30 Total Protein 6.1 g/dL (5.8-8.3) 03/30/18 06:45 Albumin 3.1 g/dL (3.0-4.8) 03/30/18 06:45 Globulin 3.0 gm/dL 03/30/18 06:45 Albumin/Globulin Ratio 1.0 (1.1-1.8) L 03/30/18 06:45 Triglycerides 109 mg/dL (35-160) 03/28/18 06:30 Cholesterol 128 mg/dL (130-200) L 03/28/18 06:30 LDL Cholesterol Direct 73 mg/dL (0-129) 03/28/18 06:30 HDL Cholesterol 42 mg/dL (29-60) 03/28/18 06:30 Amylase 328 U/L (35-125) H 03/27/18 03:30 Lipase 280 U/L (23-300) 03/27/18 03:30 Urine Color Yellow (YELLOW) 03/27/18 05:00 Urine Appearance Clear (CLEAR) 03/27/18 05:00 Urine pH 6.0 (4.7-8.0) 03/27/18 05:00 Ur Specific [place] 1.015 (1.005-1.035) 03/27/18 05:00 Urine Protein Negative mg/dL (<30 mg/dL) 03/27/18 05:00 Urine Glucose (UA) Negative mg/dL (NEGATIVE) 03/27/18 05:00 Urine Ketones Negative mg/dL (NEGATIVE) 03/27/18 05:00 Urine Blood Negative (NEGATIVE) 03/27/18 05:00 Urine Nitrate Negative (NEGATIVE) 03/27/18 05:00 Urine Bilirubin Negative (NEGATIVE) 03/27/18 05:00 Urine Urobilinogen 0.2 E.U./dL (<1 E.U./dL) 03/27/18 05:00 Ur Leukocyte Esterase Negative Jorden/uL (NEGATIVE) 03/27/18 05:00 Blood Type B POSITIVE 03/27/18 06:00 Antibody Screen Negative 03/27/18 06:00 BBK History Checked Patient has bt 03/27/18 06:00 - Hospital Course Hospital Course: Upon Admission 72 year old male with PMHx DM2, CAD s/p CABG, dyslipidemia, HTN, prostate ca, DVT, PAD, peripheral neuropathy presented with abdominal pain, bloody diarrhea, and nausea/vomiting. Pt reports he ate food at a [employer] restaurant the night prior to admission and started to have severe abdominal pain with associated nausea and vomiting. Hospital Course In the ER patient had two episodes of bloody diarrhea. CTAP was remarkable for mild mural thickening throughout colon especially in descending colon; fluid levels seen; consistent with colitis. Patient was started on a CLD and IV Rocephin and Flagyl as per GI and Surgery recommendations. Stool cultures were obtained and C Diff was negative. Oral hypoglycemic home meds for DM2 were placed on hold and the patient was started on low dose RISS and accuchecks. Patient's pain began to improve and he no longer had episodes of diarrhea or blood in his stool. Patient's diet was advanced and he was tolerating well. Patient had one formed BM with no blood or melena. Patient clinically improved and was eager to be discharged. On day of discharge, patient was deemed medically optimized for discharge. Upon Discharge Upon discharge patient was instructed to take the following abx: -Flagyl 500mg 1 tab every 8 hours daily for 6 more days Disp#19 [first dose 03/30/18] -Ciprofloxacin 500mg 1 tab every 12 hours daily for 6 more days Disp#21 [first dose 03/30/18] When taking Flagyl patient was advised to NOT drink any alcohol. Patient was also instructed to resume home medications as prescribed by PMD. Patient instructed to follow up with PMD within 7 days of discharge. Patient also instructed to follow up with his GI physician as he would need a colonoscopy after 6 weeks when acute issues resolved. Patient instructed to follow a heart healthy low carb diet with low fiber. If symptoms returned patient instructed to visit nearest ER. Instructions discussed in detail with patient who verbalized understanding and agreement.. Please note this is a discharge summary. For full hospital course please refer to medical records. Discharge Exam - Head Exam Head Exam: ATRAUMATIC, NORMAL INSPECTION - Eye Exam Eye Exam: EOMI, Normal appearance, PERRL. absent: Conjunctival injection, Scleral icterus - ENT Exam ENT Exam: Mucous Membranes Moist - Neck Exam Neck exam: Full Rom - Respiratory Exam Respiratory Exam: Clear to PA & Lateral, NORMAL BREATHING PATTERN, UNREMARKABLE. absent: Accessory Muscle Use, Rales, Rhonchi, Wheezes, Respiratory Distress - Cardiovascular Exam Cardiovascular Exam: REGULAR RHYTHM, +S1, +S2. absent: Systolic Murmur - GI/Abdominal Exam GI & Abdominal Exam: Normal Bowel Sounds, Soft, Tenderness (slight to palpation LLQ). absent: Distended, Firm, Guarding, Rigid - Rectal Exam Rectal Exam: Deferred - Extremities Exam Extremities exam: normal capillary refill, normal inspection, pedal pulses present - Neurological Exam Neurological exam: Alert, CN II-XII Intact, Normal Gait, Oriented x3 - Psychiatric Exam Psychiatric exam: Normal Affect, Normal Mood - Skin Skin Exam: Dry, Intact, Normal Color, Warm Discharge Plan - Discharge Medications Prescriptions: Ciprofloxacin [Cipro] 500 mg PO Q12 6 Days #13 tab metroNIDAZOLE [Flagyl] 500 mg PO Q8H 6 Days #19 tab - Follow Up Plan Condition: GOOD Disposition: HOME/ ROUTINE Additional Instructions: You are being discharged from [facility]. Upon discharge please take following antibiotics -Flagyl 500mg 1 tab every 8 hours daily for 6 more days Disp#19 [first dose 03/30/18] -Ciprofloxacin 500mg 1 tab every 12 hours daily for 6 more days Disp#21 [first dose 03/30/18] When taking Flagyl please be aware that you should NOT drink any alcohol. Please resume all other home medications as prescribed by your primary doctor. Please follow up with your primary care doctor within 7 days of discharge. 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 You will likely need a colonoscopy in 6 weeks once acute issues resolve. Please follow a heart healthy low carb diet with low fiber. If symptoms return please visit your nearest Emergency Room. Referrals: Tacho Grover MD [Family Provider] - Zachery Escalona [Medical Doctor] -
--- NOTE | 2018-03-30 12:20 | CP.PCM.PN ---
Subjective - Date & Time of Evaluation Date of Evaluation: 03/30/18 Time of Evaluation: 11:26 - Subjective Subjective: Marcos Onofre DO - PGY1 Internal Medicine Making Machine Operator - Surgical Progress Note for Dr. Johnson Pt. was seen and examined at bedside this morning. No acute events reported overnight. Patient denied any bloody BM this morning; abdominal pain improving this morning. No further complaints offered at this time. Objective - Vital Signs/Intake and Output Vital Signs (last 24 hours): Temp Pulse Resp BP Pulse Ox 98.7 F 68 20 118/71 96 03/30/18 06:00 03/30/18 06:00 03/30/18 06:00 03/30/18 06:00 03/30/18 06:00 Intake and Output: 03/30/18 03/30/18 06:59 18:59 Intake Total 180 Balance 180 - Medications Medications: Current Medications Acetaminophen (Tylenol 325mg Tab) 650 mg PO Q4H PRN PRN Reason: Fever >100.5 F Atorvastatin Calcium (Lipitor) 40 mg PO DAILY [facility] Last Admin: 03/30/18 09:37 Dose: 40 mg Gabapentin (Neurontin) 300 mg PO TID [facility]; Protocol Last Admin: 03/30/18 09:37 Dose: 300 mg Ceftriaxone Sodium (Rocephin 1 Gram Ivpb) 1 gm in 100 mls @ 100 mls/hr IVPB DAILY [facility]; Protocol Last Admin: 03/29/18 09:47 Dose: 100 mls/hr Metronidazole (Flagyl) 500 mg in 100 mls @ 100 mls/hr IVPB Q8 [facility]; Protocol Last Admin: 03/30/18 06:07 Dose: 100 mls/hr Insulin Human Lispro (Humalog Low) 0 units SC ACHS [facility]; Protocol Last Admin: 03/30/18 07:54 Dose: 1 unit Morphine Sulfate (Morphine) 2 mg IM Q4H PRN PRN Reason: Pain, moderate (4-7) Last Admin: 03/28/18 11:52 Dose: 2 mg Ondansetron HCl (Zofran Inj) 4 mg IVP Q6H PRN PRN Reason: Nausea/Vomiting Last Admin: 03/27/18 05:54 Dose: 4 mg Pantoprazole Sodium (Protonix Ec Tab) 40 mg PO ACB [facility] Last Admin: 03/30/18 07:55 Dose: 40 mg Simethicone (Mylicon Liq) 40 mg PO QID PRN PRN Reason: Gas Pain Last Admin: 03/27/18 19:58 Dose: 40 mg - Labs Labs: 03/30/18 06:45 03/30/18 06:45 PT 11.1 SECONDS (9.4-12.5) 03/27/18 03:30 INR 0.97 03/27/18 03:30 APTT 20.5 Seconds (25.1-36.5) L 03/27/18 03:30 - Constitutional Appears: Non-toxic, No Acute Distress - Head Exam Head Exam: ATRAUMATIC, NORMAL INSPECTION - Eye Exam Eye Exam: EOMI, Normal appearance - ENT Exam ENT Exam: Mucous Membranes Moist - Respiratory Exam Respiratory Exam: Clear to Ausculation Bilateral, NORMAL BREATHING PATTERN - Cardiovascular Exam Cardiovascular Exam: +S1, +S2 - GI/Abdominal Exam GI & Abdominal Exam: Soft, Minimal Tenderness, Normal Bowel Sounds - Neurological Exam Neurological Exam: Alert, Awake, Oriented x3 - Psychiatric Exam Psychiatric exam: Normal Affect, Normal Mood - Skin Skin Exam: Dry, Intact, Normal Color, Warm Assessment and Plan - Assessment and Plan (Free Text) Assessment: 72M c/o abd pain; found to have pancolitis on CTAP Plan: -Tolerating diet well -Clear for discharge from surgical standpoint -F/u w/ GI outpt w/in 6-8 wks -C/w PRN Analgesic Rx -No acute Surgical Intervention at this time -D/w Dr. Johnson
[2018-03-30 15:17] VITALS: BP 115/69; PULSE 63; RESP 18; TEMP 98.8
== END 2018-03-30 18:43 | disposition home or self-care (01) | DRG 392 ==
LOC: ED 02:55 → ERH 05:42 → 5RNO 06:26 → INTOOBSV 14:17 → OBSVTOIN 14:17
PROVIDERS: ADMIT Internal Medicine Medical Oncology; ATTEND Internal Medicine Nephrology
DX: A09 Infectious gastroenteritis and colitis, unspecified (principal); K92.1 Melena; I82.509 Chronic embolism and thrombosis of unspecified deep veins of unspecified lower extremity; I10 Essential (primary) hypertension; E11.42 Type 2 diabetes mellitus with diabetic polyneuropathy; K80.20 Calculus of gallbladder without cholecystitis without obstruction; I25.10 Atherosclerotic heart disease of native coronary artery without angina pectoris; E11.51 Type 2 diabetes mellitus with diabetic peripheral angiopathy without gangrene; D64.9 Anemia, unspecified; E78.5 Hyperlipidemia, unspecified; R42 Dizziness and giddiness; I25.2 Old myocardial infarction; Z85.46 Personal history of malignant neoplasm of prostate; Z87.891 Personal history of nicotine dependence; Z79.84 Long term (current) use of oral hypoglycemic drugs; Z95.1 Presence of aortocoronary bypass graft

== ENCOUNTER 2018-04-05 01:11 | Inpatient (IN) | payer MEDICARE ==
[2018-04-05 01:11] VITALS: BMI 25.8
[2018-04-05] MEDS ORDERED: Nitroglycerin 2% Ointment Foilpak UD TOP STA (01:36)
--- NOTE | 2018-04-05 01:50 | ED PDOC ---
Arrival/HPI - General Chief Complaint: Chest Pain Time Seen by Provider: 04/05/18 01:13 Historian: Patient - History of Present Illness Narrative History of Present Illness (Text): 04/05/18 01:48 72 year old male, whose past medical history includes CAD with multiple stents, diabetes, hypertension, and hyperlipidemia, presents with chest discomfort, since earlier this evening. Patient states it feels like his chest is tight. Patient states he found it difficult to lay down and sleep. Patient denies any fever, chills, cough, back pain, leg pain, or any other complaints. Time/Duration: Prior to Arrival Symptom Course: Unchanged Context: Home Past Medical History - Provider Review Nursing Documentation Reviewed: Yes - Infectious Disease Hx of Infectious Diseases: None - Tetanus Immunization Tetanus Immunization: Unknown - Cardiac Hx Cardiac Disorders: Yes Hx [place]: Yes Hx Hypertension: Yes Other/Comment: x4 stents - Pulmonary Hx Respiratory Disorders: No - Neurological Hx Neurological Disorder: Yes Hx Vertigo: Yes Other/Comment: Neuropathy - HEENT Hx HEENT Disorder: Yes (eyeglassees) - Renal Hx Renal Disorder: No - Endocrine/Metabolic Hx Endocrine Disorders: Yes Hx Diabetes Mellitus Type 2: Yes - Hematological/Oncological Hx Blood Transfusions: No Hx Blood Transfusion Reaction: No - Integumentary Hx Dermatological Disorder: No - Musculoskeletal/Rheumatological Hx Falls: No - Gastrointestinal Hx Gastrointestinal Disorders: Yes Hx Diverticulitis: Yes - Genitourinary/Gynecological Hx Genitourinary Disorders: Yes Hx Prostate Problems: Yes (cancer) - Psychiatric Hx Depression: No Hx Emotional Abuse: No Hx Physical Abuse: No Hx Substance Use: No - Surgical History Hx Coronary Artery Bypass Graft: Yes (2002) Other/Comment: prostatectomy,penile implant - Anesthesia Hx Anesthesia: Yes Hx Anesthesia Reactions: No Hx Malignant Hyperthermia: No - Suicidal Assessment Feels Threatened In Home Enviroment: No Family/Social History - Physician Review Nursing Documentation Reviewed: Yes Family/Social History: No Known Family HX Smoking Status: Former Smoker Hx Alcohol Use: Yes (prior abuse, quit 15 years ago) Hx Substance Use: No Hx Substance Use Treatment: No Allergies/Home Meds Allergies/Adverse Reactions: Allergies No Known Allergies Allergy (Verified 04/05/18 01:18) Home Medications: Home Meds Medication Instructions Recorded Confirmed Metformin HCl 1,000 mg PO BID 04/29/12 04/05/18 Gabapentin [Neurontin] 300 mg PO TID 05/02/18 12/18/18 Glimepiride [amaRYL] 2 mg PO BID 08/18/17 04/05/18 Lisinopril [Zestril] 10 mg PO DAILY 08/18/17 04/05/18 Simvastatin [Zocor] 80 mg PO DIN 08/18/17 04/05/18 Vitamin B Complex 100 No.2 [B-100 100 mg PO DAILY 08/18/17 04/05/18 Complex] Review of Systems - Physician Review All systems were reviewed & negative as marked: Yes - Review of Systems Constitutional: absent: Fevers, Night Sweats Respiratory: absent: Cough Cardiovascular: Chest Pain (tightness) Musculoskeletal: absent: Back Pain, Other (leg pain) Physical Exam Vital Signs Reviewed: Yes Blood Pressure: Normal Pulse: Regular Respiratory Rate: Normal Appearance: Positive for: Well-Appearing, Non-Toxic, Comfortable Pain Distress: None Mental Status: Positive for: Alert and Oriented X 3 - Systems Exam Head: Present: Atraumatic, Normocephalic Pupils: Present: PERRL Extroacular Muscles: Present: EOMI Conjunctiva: Present: Normal Mouth: Present: Moist Mucous Membranes Neck: Present: Normal Range of Motion Respiratory/Chest: Present: Clear to Auscultation, Good Air Exchange. No: Respiratory Distress, Accessory Muscle Use Cardiovascular: Present: Regular Rate and Rhythm, Normal S1, S2. No: Murmurs Abdomen: No: Tenderness, Distention, Peritoneal Signs Back: Present: Normal Inspection Upper Extremity: Present: Normal Inspection. No: Cyanosis, Edema Lower Extremity: Present: Normal Inspection. No: Edema, CALF TENDERNESS, Clement's Sign Neurological: Present: GCS=15, CN II-XII Intact, Speech Normal Skin: Present: Warm, Dry, Normal Color. No: Rashes Psychiatric: Present: Alert, Oriented x 3, Normal Insight, Normal Concentration Medical Decision Making ED Course and Treatment: 04/05/18 01:52 Impression: 72 year old male presents with chest tightness. Plan: -- EKG -- CMP, Cardiac Chemistry -- CBC -- Chest X-ray -- Aspirin -- Lopressor -- Nitroglycerin -- Reassess and disposition Prior Visits: Notes and results from previous visits were reviewed. Progress Notes: 04/05/18 01:53 EKG Reviewed by me, shows: Normal Sinus Rhythm @ 100 bpm Inferior STT changes 04/05/18 03:46 Patient currently states his chest pain has resolved, stating he is feeling much better. Patient lab results were noted and discussed with the patient. Case was discussed with patients PMD, Dr Mancera, who accepts patient to his service at this time for further evaluation, possible NSTEMI. Patient has received Choco enox. Dr. Joseph will be on consult. - RAD Interpretation Radiology Orders: 04/05/18 01:43 CHEST PORTABLE [RAD] Stat - Medication Orders Current Medication Orders: Discontinued Medications Aspirin (Aspirin) 325 mg PO ONCE STA Stop: 04/05/18 01:37 Metoprolol Tartrate (Lopressor) 25 mg PO ONCE STA Stop: 04/05/18 01:39 Nitroglycerin (Nitro-Bid 2% Oint) 1 ea TOP ONCE STA Stop: 04/05/18 01:37 - Scribe Statement The provider has reviewed the documentation as recorded by the Budibines Jones Provider Scribe Attestation: All medical record entries made by the Scribe were at my direction and personally dictated by me. I have reviewed the chart and agree that the record accurately reflects my personal performance of the history, physical exam, medical decision making, and the department course for this patient. I have also personally directed, reviewed, and agree with the discharge instructions and disposition. Disposition/Present on Arrival - Present on Arrival Any Indicators Present on Arrival: No History of DVT/PE: No History of Uncontrolled Diabetes: No Urinary Catheter: No History of Decub. Ulcer: No History Surgical Site Infection Following: None - Disposition Have Diagnosis and Disposition been Completed?: Yes Diagnosis: Chest pain, NSTEMI (non-ST elevated myocardial infarction) Disposition: HOSPITALIZED Disposition Time: 03:43 Patient Plan: Admission Patient Problems: Current Active Problems Problem Status Onset Chest pain Acute NSTEMI (non-ST elevated myocardial infarction) Acute Condition: STABLE
[2018-04-05 02:27] LABS: HEMOGLOBIN 11.8 g/dL (14.0-18.0); MEAN CELL VOLUME 84.6 fl (80.0-105.0); MEAN CORPUSCULAR HEMOGLOBIN 28.4 pg (25.0-35.0); MEAN CORPUSCULAR HGB CONC 33.5 g/dl (31.0-37.0); MEAN PLATELET VOLUME 8.9 fl (7.0-11.0); RBC 4.16 10^6/uL (3.5-6.1); RED CELL DISTRIBUTION WIDTH 13.6 % (11.5-14.5); WHITE BLOOD COUNT 11.2 10^3/uL (4.5-11.0)
[2018-04-05 02:33] LABS: INR 1.12; PARTIAL THROMBOPLASTIN TIME 25.7 Seconds (25.1-36.5); PROTHROMBIN TIME 12.8 SECONDS (9.4-12.5)
[2018-04-05 02:47] LABS: ALB/GLOB RATIO 1.2 (1.1-1.8); ALBUMIN 3.8 g/dL (3.0-4.8); ALT/SGPT 44 U/L (7-56); AST/SGOT 35 U/L (17-59); BLOOD UREA NITROGEN 22 mg/dL (7-21); CALCIUM 9.3 mg/dL (8.4-10.5); GFR NON-AFRICAN AMERICAN > 60
[2018-04-05 03:31] LABS: B-TYPE NATRIURETIC PEPTIDE 244 pg/mL (0-450); TROPONIN I 0.17 ng/mL
[2018-04-05] MEDS ORDERED: Enoxaparin 80 mg Syringe SC STA (03:31)
[2018-04-05 06:19] VITALS: TEMP 97.8
[2018-04-05 06:32] VITALS: O2SAT 100
--- NOTE | 2018-04-05 08:24 | RAD ---
Date of service: 04/05/2018 HISTORY: chest pain COMPARISON: Portable chest 02/10/2018. FINDINGS: LUNGS: No active pulmonary disease. PLEURA: No significant pleural effusion identified, no pneumothorax apparent. CARDIOVASCULAR: No aortic atherosclerotic calcification present. Normal cardiac size. No pulmonary vascular congestion. OSSEOUS STRUCTURES: Sternotomy wires reiterated. VISUALIZED UPPER ABDOMEN: Normal. OTHER FINDINGS: None. IMPRESSION: No interval acute cardiopulmonary disease appreciated.
--- NOTE | 2018-04-05 09:32 | CON ---
DATE: 04/05/2018 CHIEF COMPLAINT: Chest pain and NSTEMI. HISTORY OF PRESENT ILLNESS: This is a 72-year-old man with complex past cardiac history including recent stents at [facility] who came in with several hours of band-like pain across the chest that began about 09:00 p.m. He came to the hospital about 01:00 a.m. Troponin is 0.17. He was treated in the emergency room, admitted to telemetry. This morning, his chest pain has resolved. There is no shortness of breath, orthopnea, PND, syncope, presyncope, lightheadedness, dizziness, vertigo, palpitations, edema, claudication, fever, chills, cough, sputum production, hemoptysis, abdominal pain, nausea, vomiting, diarrhea, constipation, melena. PAST MEDICAL HISTORY: Notable for coronary artery disease with remote triple-vessel bypass operation in approximately 2002. He has had 8 stents total. He says a one stent in approximately 2004, 3 stents in approximately 2007 and 4 stents recently, about 4 weeks ago. There is no history of rheumatic fever, arrhythmia or congestive heart failure. There is a history of diabetes, peripheral neuropathy, hypertension, hyperlipidemia. No history of stroke, TIA or gout. MEDICATIONS: At the time of admission include metformin, gabapentin, glimepiride, simvastatin, Plavix, aspirin, Cipro, Flagyl, meclizine, lisinopril, vitamin D. ALLERGIES: NO MEDICATION ALLERGIES REPORTED. SOCIAL HISTORY: He lives at home with his . He is ambulatory. He does not smoke cigarettes. He does not drink alcohol significantly. I spoke to his brother, who is a physician in [place], about his case. FAMILY HISTORY: Noncontributory. REVIEW OF SYSTEMS: Ten-point review of systems otherwise unremarkable except as noted above. PHYSICAL EXAMINATION: GENERAL: He is a well-developed male lying in bed on telemetry, in no acute distress. VITAL SIGNS: Notable for sinus rhythm at 68 beats per minute. He is afebrile. Blood pressure 111/61, respirations 16, O2 sat 100% on room air. HEENT: Reveals no neck vein distention, thyromegaly, carotid bruits. Mucous membranes moist. Conjunctivae pink. NECK: Supple. LUNGS: Lung diehl clear. HEART: Examination of the heart revealed normal first and second heart sounds. No murmur, gallop, rub or click. ABDOMEN: Benign. No mass, organomegaly, tenderness, rebound, guarding, CVA tenderness or palpable abdominal aortic aneurysm. EXTREMITIES: Revealed no cyanosis, clubbing or edema. NEUROLOGIC: Awake, alert and oriented. SKIN: Warm and dry. No rash or cellulitis. LABORATORY DATA: That his laboratory and beginning is notable for a portable chest x-ray which is not yet read. It appears normal without evidence of congestive heart failure or effusion or infiltrate by my reading. EKG showed sinus rhythm with ST-T wave changes. White count 11,200, hemoglobin 11.8, hematocrit 35.2, platelet count normal. PT 12.8, INR 1.12, PTT 25.7. Sodium 130, potassium 4.2, BUN 22, creatinine 1.0, blood sugar 321, repeat 146. LFTs unremarkable. CK 148. First troponin 0.17. BNP 244. IMPRESSION: Da Feliciano is a 72-year-old man with a complex cardiac history including remote coronary bypass surgery, remote coronary stents and recently 4 stents implanted at [facility] who presents with typical chest pain, band like across the chest lasting about 4 hours with a positive initial troponin at 0.17. At this time, he is at bedrest on telemetry getting nasal O2. He got aspirin. He will get his dose of Plavix shortly. He is getting metoprolol, lisinopril, a dose of Nitropaste, a dose of Lovenox. I will repeat a troponin and EKG this morning. I spoke with his brother who is a physician in [place]. I have spoken with the patient. I suggested that they make arrangements to be transferred to [facility] for inpatient evaluation including cardiac catheterization as soon as possible and they agree. Alternatively, if he wishes to stay here, we can arrange a cardiac catheterization for him. However, given the complexity of his coronary artery disease and recent and remote interventions, he might be best served by having his own city controller take care of him. At this time, these matters are being discussed and his brother is communicating with his city controller at [facility]. We await their decisions. I will follow along with you. I have discussed the case with Dr. Bell as well. Eh Teresa MD [facility] # [id number] VIBHA
[2018-04-05 10:54] LABS: CK MB% 9.7 % (2.5-3.0); TROPONIN I 5.49 ng/mL
[2018-04-05] MEDS ORDERED: Insulin Reg-LOW-Coverage SC SCH (11:30)
--- NOTE | 2018-04-05 11:33 | CARD ---
APPROVED REPORT Date of service: 04/05/2018 EKG Measurement Heart [id number] [place] 132P25 [id number] <Conclusion> Normal sinus rhythm LVH by voltage Improved ST segments V 3 - 6, now normal
--- NOTE | 2018-04-05 11:42 | HP ---
DATE OF EXAM: 04/05/2018 HISTORY OF PRESENT ILLNESS: This is a 72-year-old male who is coming into the hospital complaining of chest pain. The patient states that the chest pain started 09:00 p.m. yesterday and continued until he came into the ER for evaluation. The patient says he does have a history of coronary disease. He was recently discharged from the hospital because of colitis that he had. His discharge was about 6 days ago. He did well during his episode of colitis and it had improved. The patient has a history of CABG. This was done and he also has a history of stent x4 in with his digital marketing executive. The patient had a troponin that was elevated at 0.17. He denied any dizziness. No back pain. No dysuria, frequency, no abdominal pain. No headaches, no shortness of breath. He says his chest pain resolved after he was into the hospital. REVIEW OF SYSTEMS: All review of symptoms are within normal limits except as mentioned. PAST MEDICAL HISTORY: 1. Coronary artery disease status post CABG in [address] 2. Colitis. 3. Diabetes type 2. 4. Peripheral neuropathy. 5. Prostate cancer with seed implants 6. Vertigo. 7. Hypertension. PAST SURGICAL HISTORY: Right CABG and prostate surgery. ALLERGIES NO KNOWN DRUG ALLERGIES. MEDICATIONS: reviewed on the MAR list SOCIAL HISTORY: He smoked but quit about 3 years ago. He denies alcohol or drugs. FAMILY HISTORY: Noncontributory. PHYSICAL EXAMINATION: VITAL SIGNS: Temperature is 97.8, pulse of 68, blood pressure 111/61, respirations 16, O2 saturation 100%. GENERAL: The patient lying in bed, uncomfortable, and in no acute distress. HEENT: Atraumatic and normocephalic. Anicteric sclerae. Moist mucosa. [place] conjunctivae. No oral lesions. NECK: No JVD, anterior and posterior adenopathy, thyromegaly, or bruits. CARDIOVASCULAR: S1 and S2 regular. No murmur, rubs, or gallop. LUNGS: Clear to auscultation bilaterally. No wheezes, rales, or rhonchi. In the chest in the midline, he has scar from surgery, CABG. ABDOMEN: Bowel sounds are positive. Soft, nontender and nondistended. No hepatosplenomegaly. No rebound and no guarding EXTREMITIES: No cyanosis, clubbing, or edema. NEUROLOGIC: No facial asymmetry. Tongue is midline. No vulva deviation. Power is 5/5 upper extremity and lower extremity. Sensation intact in upper extremity and lower extremity. PSYCHIATRIC: She is awake, alert and oriented x3. No anxiety or depression. She has normal affect. GENITOURINARY: No CVA tenderness. VASCULAR: 2+ pulses in the carotid pulses and pedal pulses. SKIN: No erythema or nodules SPINE: Shows normal curvature. LABORATORY DATA: White count 11.2, hemoglobin 11.8, creatinine is 1.1. Chemistry shows a creatinine of 1.0, glucose is 321. Sodium is 130. He has a troponin of 0.17.. Repeat is pending. His chest x-ray done shows no infiltrates. His EKG shows sinus rhythm at 68. QTC is 455. He has no ST changes. There is a T-wave inversion in V3 and flattened T-waves in aVF. ASSESSMENT: 1. Chest pain/non-ST elevation myocardial infarction. 2. Coronary artery disease status post coronary artery bypass graft. 3. Diabetes type 2. 4. History of prostate cancer. 5. Dyslipidemia. 6. Peripheral neuropathy. PLAN: The patient is currently comfortable. He is chest pain free. He has a second troponin that has been ordered. I have asked Cardiology to evaluate the patient. He will continue his aspirin for his coronary disease. I will place him on Lipitor for his dyslipidemia, simvastatin is not formulary. He is going to be on metoprolol and Lovenox for his chest pain and elevated troponin. He has been taking his Plavix. This will be continued. He has multiple stents in place. He is going to be on lisinopril for his hypertension. The patient is on oxygen. He did speak to Dr. Teresa the patient and Dr. Teresa spoke with the patient's family and there is a family member who is the patient's son is a physician. He will like for the patient to be transferred to [facility] under his digital marketing executive. We will try to make arrangements. We will continue to follow closely. Ravin Bell MD [facility] # [id number] VIBHA
[2018-04-05 12:22] VITALS: BP 114/68; PULSE 64; RESP 19
--- NOTE | 2018-04-05 12:42 | CP.PCM.PCO ---
Physician Communication Note - Physician Communication Note Physician Communication Note: Patient for transfer to [facility] awaiting bed, Emtala is completed
--- NOTE | 2018-04-06 07:47 | CARD ---
APPROVED REPORT Date of service: 04/05/2018 EKG Measurement Heart [id number] <Conclusion> Normal sinus rhythm LVH ST & T wave abnormality, consider inferior ischemia
== END 2018-04-05 18:26 | disposition short-term general hospital (02) | DRG 282 ==
LOC: ED 01:11 → ERH 03:39 → 2RNO 07:12
PROVIDERS: ADMIT Internal Medicine Nephrology; ATTEND Internal Medicine Nephrology
DX: I21.4 Non-ST elevation (NSTEMI) myocardial infarction (principal); E11.42 Type 2 diabetes mellitus with diabetic polyneuropathy; I10 Essential (primary) hypertension; I25.10 Atherosclerotic heart disease of native coronary artery without angina pectoris; E78.5 Hyperlipidemia, unspecified; Z85.46 Personal history of malignant neoplasm of prostate; Z87.891 Personal history of nicotine dependence; Z95.1 Presence of aortocoronary bypass graft; Z95.5 Presence of coronary angioplasty implant and graft; Z79.84 Long term (current) use of oral hypoglycemic drugs

== ENCOUNTER 2018-05-27 10:49 | Observation (INO) | payer MEDICARE ==
[2018-05-27 10:50] VITALS: BMI 27.1
[2018-05-27] MEDS ORDERED: diltiaZEM IVPB 100mg in NS 100 ML IV PRN (11:05)
--- NOTE | 2018-05-27 11:08 | ED PDOC ---
Arrival/HPI - General Chief Complaint: Palpitations Time Seen by Provider: 05/27/18 10:54 Historian: Patient - History of Present Illness Narrative History of Present Illness (Text): 05/27/18 11:05 A 72 year old male, whose past medical history includes CABG with multiple coronary stents, diabetes, hypertension, and hyperlipidemia, presents to the emergency department with a complaint of palpitations, shortness of breath, and lightheadedness. He reports waking up with these symptoms. The patient reports that he is a non- smoker/ non- drinker. The patient denies fevers, chills, headache, chest pain, dyspnea on exertion, cough, abdominal pain, nausea, vomiting, diarrhea, back pain, neck pain, urinary/bowel changes, or any other complaint. PMD: Dr. Grover Time/Duration: Other (This Morning) Symptom Onset: Sudden Symptom Course: Unchanged Activities at Onset: Rest, Light Context: Home Associated Symptoms (Text): 05/27/18 11:37 Patient woke up with palpitation shortness of breath and lightheadedness this morning. Past Medical History - Provider Review Nursing Documentation Reviewed: Yes - Infectious Disease Hx of Infectious Diseases: None - Tetanus Immunization Tetanus Immunization: Unknown - Cardiac Hx Cardiac Disorders: Yes Hx Cardiac Arrhythmia: Yes Hx Hypertension: Yes Other/Comment: Cardiac Stents x 9 - Pulmonary Hx Respiratory Disorders: No - Neurological Hx Neurological Disorder: Yes Hx Dizziness: Yes - HEENT Hx HEENT Disorder: Yes (eyeglasses) - Renal Hx Renal Disorder: No - Endocrine/Metabolic Hx Endocrine Disorders: Yes Hx Diabetes Mellitus Type 2: Yes Other/Comment: diabetic neuropathy - Hematological/Oncological Hx Blood Disorders: No - Integumentary Hx Dermatological Disorder: No - Musculoskeletal/Rheumatological Hx Musculoskeletal Disorders: Yes (sciatica) Hx Falls: No - Gastrointestinal Hx Gastrointestinal Disorders: Yes Hx Diverticulitis: Yes - Genitourinary/Gynecological Hx Genitourinary Disorders: Yes Hx Prostate Problems: Yes (prostate cancer and penile implant) - Psychiatric Hx Psychophysiologic Disorder: Yes (alcohol abuse 15 years ago) Hx Substance Use: No - Surgical History Hx Cardiac Catheterization: Yes (2002) Hx Coronary Stent: Yes - Anesthesia Hx Anesthesia: Yes Hx Anesthesia Reactions: No Hx Malignant Hyperthermia: No - Suicidal Assessment Feels Threatened In Home Enviroment: No Family/Social History - Physician Review Nursing Documentation Reviewed: Yes Family/Social History: No Known Family HX Smoking Status: Former Smoker Hx Alcohol Use: Yes Hx Substance Use: No Hx Substance Use Treatment: No Allergies/Home Meds Allergies/Adverse Reactions: Allergies No Known Allergies Allergy (Verified 04/05/18 01:18) Home Medications: Home Meds Medication Instructions Recorded Confirmed Aspirin [Ecotrin] 1 tab PO DAILY 05/27/18 05/27/18 Clopidogrel [Plavix] 1 tab PO DAILY 05/27/18 05/27/18 Dexlansoprazole [Dexilant] 1 tab PO DAILY 05/27/18 05/27/18 Ezetimibe [Zetia] 1 tab PO DAILY 05/27/18 05/27/18 Glimepiride [amaRYL] 1 tab PO DAILY 05/27/18 05/27/18 Hydrochlorothiazide [Microzide] 25 mg PO DAILY 05/27/18 05/27/18 Isosorbide Mononitrate [Imdur] 1 tab PO DAILY 05/27/18 05/27/18 Lisinopril [Zestril] 1 tab PO DAILY 05/27/18 05/27/18 Meclizine [Antivert] 1 tab PO TID PRN 05/27/18 05/27/18 MetFORMIN [glucoPHAGE] 1 tab PO BID 05/27/18 05/27/18 Metoprolol Tartrate [Lopressor] 1 tab PO Q12H 05/27/18 05/27/18 Simvastatin [Zocor] 1 tab PO HS 05/27/18 05/27/18 Review of Systems - Physician Review All systems were reviewed & negative as marked: Yes - Review of Systems Constitutional: absent: Fevers Respiratory: SOB. absent: Cough Cardiovascular: Palpitations. absent: Chest Pain, OLMOS, Syncope Gastrointestinal: absent: Abdominal Pain, Stool Changes, Diarrhea, Nausea, Vomiting Musculoskeletal: absent: Back Pain, Neck Pain Neurological: Dizziness, Other (Lightheadedness). absent: Headache Physical Exam Vital Signs Reviewed: Yes Vital Signs Temp Pulse Resp BP Pulse Ox 05/27/18 10:55 98.1 F 166 H 18 161/78 H 97 Temperature: Afebrile Blood Pressure: Hypertensive Pulse: Tachycardic Respiratory Rate: Normal Appearance: Positive for: Well-Appearing, Non-Toxic, Uncomfortable Pain Distress: None Mental Status: Positive for: Alert and Oriented X 3 - Systems Exam Head: Present: Atraumatic, Normocephalic Pupils: Present: PERRL Extroacular Muscles: Present: EOMI Conjunctiva: Present: Normal Mouth: Present: Moist Mucous Membranes Neck: Present: Normal Range of Motion Respiratory/Chest: Present: Clear to Auscultation, Good Air Exchange. No: Respiratory Distress, Accessory Muscle Use Cardiovascular: Present: Irregular Rhythm, Tachycardic, Other (Rapid A- Fib). No: Murmurs Abdomen: No: Tenderness, Distention, Peritoneal Signs Back: Present: Normal Inspection Upper Extremity: Present: Normal Inspection. No: Cyanosis, Edema Lower Extremity: Present: Normal Inspection. No: Edema Neurological: Present: GCS=15, CN II-XII Intact, Speech Normal, Motor Func Grossly Intact Skin: Present: Warm, Dry, Normal Color. No: Rashes Psychiatric: Present: Alert, Oriented x 3, Normal Insight, Normal Concentration Medical Decision Making ED Course and Treatment: 05/27/18 11:11 Impression: A 72 year old male presents to the emergency department with a complain tof palpitations, lightheadedness, and shortness of breath. Plan: -- EKG -- Chest X-ray -- Labs -- Cardizem -- Reassess and disposition Prior Visits: Notes and results from previous visits were reviewed. Progress Notes: 05/27/18 11:37 EKG shows rapid atrial fibrillation rate approximately [address] and T-wave changes. 05/27/18 11:38 A repeat EKG post Cardizem bolus and drip shows normal sinus rhythm rate approximately [address] changes. Chest X-ray Dictator : Ian Reaves MD Report Date : 05/27/2018 12:06:02 IMPRESSION: No active disease. - Lab Interpretations I have reviewed the lab results: Yes - EKG Interpretation Interpreted by ED Physician: Yes Type: 12 lead EKG - Scribe Statement The provider has reviewed the documentation as recorded by the Yinka Walden Provider Scribe Attestation: All medical record entries made by the Scribe were at my direction and personally dictated by me. I have reviewed the chart and agree that the record accurately reflects my personal performance of the history, physical exam, medical decision making, and the department course for this patient. I have also personally directed, reviewed, and agree with the discharge instructions and disposition. Disposition/Present on Arrival - Present on Arrival Any Indicators Present on Arrival: No History of DVT/PE: No History of Uncontrolled Diabetes: Yes Urinary Catheter: No History of Decub. Ulcer: No History Surgical Site Infection Following: None - Disposition Have Diagnosis and Disposition been Completed?: Yes Diagnosis: Rapid atrial fibrillation, Dyspnea, Lightheadedness Disposition: HOSPITALIZED Disposition Time: 11:39 Patient Plan: Observation, Telemetry Patient Problems: Current Active Problems Problem Status Onset Dyspnea Acute Lightheadedness Acute Rapid atrial fibrillation Acute Condition: IMPROVED
[2018-05-27 11:15] LABS: BASO # 0.02 K/mm3 (0.0-2.0); BASO % 0.2 % (0.0-3.0); EOS # 0.3 (0.0-0.7); HEMOGLOBIN 12.8 g/dL (14.0-18.0); LYMPH # 2.8 (1.2-3.4); LYMPH % 29.5 % (22.0-35.0); MEAN CELL VOLUME 84.3 fl (80.0-105.0); MEAN CORPUSCULAR HEMOGLOBIN 28.3 pg (25.0-35.0); MEAN CORPUSCULAR HGB CONC 33.5 g/dl (31.0-37.0); MONO # 0.5 (0.1-0.6); MONO % 5.2 % (1.0-6.0); RBC 4.53 10^6/uL (3.5-6.1); RED CELL DISTRIBUTION WIDTH 13.2 % (11.5-14.5); WHITE BLOOD COUNT 9.4 10^3/uL (4.5-11.0)
--- NOTE | 2018-05-27 11:15 | CP.PCM.HP ---
<Domonique Sung - Last Filed: 05/27/18 15:29> History of Present Illness - History of Present Illness History of Present Illness: 72yo male well known to service PMHx CAD s/p 9 stents, prostate ca, DM2, peripheral neuropathy, HTN, HLD, vertigo presents with chest pain and palpitations that began the morning of admission. Patient reports he was at a restaurant and began to experience 7-8/10 chest tightness non radiating to his left arm/up his jaw. He also denied any diaphoresis but admitted to palpitations and feeling like his heart was racing. He admitted to some associated SOB and denied any cough. Patient reports he took all his medications at once this AM and was unsure if his symptoms were related. Nothing made his symptoms resolve which is why he decided to come in. On ROS patient denied any fever, chills, headache, dizzziness, blurry vision, cough, abd pain, nausea, vomiting, bowel/bladder complaints, pain/swelling in his legs b/l. Patient has a good appetite and ambulates without assistance. He completes all ADLs. Of note, patient had 4 coronary stents placed Mar 23, 2018 and had 1 stent placed Apr 06, 2018. PMD: [place] - seen the day prior to admission for routine visit Cardio: [place]- last seen May 16, 2018 Neuro: [place]- last seen Feb 2018 PMHx: CAD s/p 9 stents, prostate ca, DM2, peripheral neuropathy, HTN, HLD, vertigo PSurgHx: penile implant, prostatetcomy Meds: pls see chart ALL: NKDA SocHx: quit tobacco 50 yrs ago; denies EtOH/drug use; lives with at home and is retired; son is a FM physician in [facility]; mother with HTN, emphysema, heart problems, DM; father in car accident Present on Admission - Present on Admission Any Indicators Present on Admission: No Review of Systems - Review of Systems All systems: reviewed and no additional remarkable complaints except Review of Systems: as per HPI Past Patient History - Infectious Disease Hx of Infectious Diseases: None - Tetanus Immunizations Tetanus Immunization: Unknown - Past Social History Smoking Status: Former Smoker - CARDIAC Hx Cardiac Disorders: Yes Hx Cardia Arrhythmia: Yes Hx Hypertension: Yes Other/Comment: Cardiac Stents x 9 - PULMONARY Hx Respiratory Disorders: No - NEUROLOGICAL Hx Neurological Disorder: Yes Hx Dizziness: Yes - HEENT Hx HEENT Problems: Yes (eyeglasses) - RENAL Hx Chronic Kidney Disease: No - ENDOCRINE/METABOLIC Hx Endocrine Disorders: Yes Hx Diabetes Mellitus Type 2: Yes Other/Comment: diabetic neuropathy - HEMATOLOGICAL/ONCOLOGICAL Hx Blood Disorders: No - INTEGUMENTARY Hx Dermatological Problems: No - MUSCULOSKELETAL/RHEUMATOLOGICAL Hx Musculoskeletal Disorders: Yes (sciatica) Hx Falls: No - GASTROINTESTINAL Hx Gastrointestinal Disorders: Yes Hx Diverticulitis: Yes - GENITOURINARY/GYNECOLOGICAL Hx Genitourinary Disorders: Yes Hx Prostate Problems: Yes (prostate cancer and penile implant) - PSYCHIATRIC Hx Psychophysiologic Disorder: Yes (alcohol abuse 15 years ago) Hx Substance Use: No - SURGICAL HISTORY Hx Cardiac Catheterization: Yes (2002) Hx Coronary Stent: Yes - ANESTHESIA Hx Anesthesia: Yes Hx Anesthesia Reactions: No Hx Malignant Hyperthermia: No Meds Allergies/Adverse Reactions: Allergies Allergy/AdvReac Type Severity Reaction Status Date / Time No Known Allergies Allergy Verified 04/05/18 01:18 Physical Exam - Constitutional Appears: Non-toxic, No Acute Distress - Head Exam Head Exam: ATRAUMATIC, NORMAL INSPECTION, NORMOCEPHALIC - Eye Exam Eye Exam: EOMI, Normal appearance, PERRL. absent: Conjunctival injection, Scleral icterus Pupil Exam: NORMAL ACCOMODATION - ENT Exam ENT Exam: Mucous Membranes Moist - Neck Exam Neck exam: Positive for: Full Rom, Normal Inspection. Negative for: Lymphadenopathy - Respiratory Exam Respiratory Exam: Clear to Auscultation Bilateral, NORMAL BREATHING PATTERN. absent: Accessory Muscle Use, Rales, Rhonchi, Wheezes, Respiratory Distress - Cardiovascular Exam Cardiovascular Exam: RRR, +S1, +S2 - GI/Abdominal Exam GI & Abdominal Exam: Normal Bowel Sounds, Soft. absent: Firm, Guarding, Rigid, Tenderness - Extremities Exam Extremities exam: Positive for: normal capillary refill, normal inspection, pedal pulses present. Negative for: calf tenderness, pedal edema - Back Exam Back exam: NORMAL INSPECTION. absent: rash noted, tenderness - Neurological Exam Neurological exam: Alert, CN II-XII Intact, Oriented x3 - Psychiatric Exam Psychiatric exam: Normal Affect, Normal Mood - Skin Skin Exam: Dry, Intact, Normal Color, Warm Results - Vital Signs Recent Vital Signs: Last Vital Signs Temp 98.1 F 05/27/18 10:55 Pulse 156 H 05/27/18 11:02 Resp 18 05/27/18 10:55 BP 161/79 H 05/27/18 11:02 Pulse Ox 97 05/27/18 10:55 - Labs Result Diagrams: 05/27/18 11:00 05/27/18 11:00 Assessment & Plan - Assessment and Plan (Free Text) Assessment: -Rapid Afib -CAD s/p 9 stents -DM2 -Peripheral neuropathy -Prostate ca -HTN -HLD -Vertigo -Hypomagnesemia -Decreased hearing in left hear Plan: In the ER patient was found to be in rapid Afib at 160bpm. Patient was given IV Cardizem bolus and repeat EKG showed normal sinus rhythm rate approximately [address] changes. Patient was admitted to TELE-Obs for further management. Cardiology consulted. f/u TSH, Free, T4, HgbA1c, lipid panel, and AM labs. Magnesium repleted. Troponin negative x 1- f/u trop x 2. Continue ASA and Plavix in light of CAD with recent stents. Continue high dose statin for CAD and HLD. Patient also takes Zetia which has been continued. Oral hypoglycemic meds o n hold and patient on accuchecks with RISS low. Will monitor and adjuste as needed. Continue Lisinopril and Toprol for HTN. Continue meclizine prn for vertigo symptoms. DVT ppx in place and patient on HHD with [facility] [place]. Patient's son Mr. Feliciano [phone] was updated on hospital course and plan. All questions and concerns were addressed and answered thoroughly. Discussed with Dr. Ray Sung PGY3 <Ravin Bell S - Last Filed: 05/30/18 21:08> Results - Vital Signs Recent Vital Signs: Last Vital Signs Temp 98.0 F 05/28/18 06:00 Pulse 64 05/28/18 10:05 Resp 20 05/28/18 06:00 BP 131/73 05/28/18 10:05 Pulse Ox 99 05/28/18 06:00 - Labs Result Diagrams: 05/28/18 07:36 05/28/18 07:36 Assessment & Plan - Assessment and Plan (Free Text) Plan: Pt seen and examined by me. This is a late entry. I have reviewed the note of the medical csr and I agree with it. I have discussed the assessment and plan with the resident. I have reviewed the medications and the last labs.Pt with rapid Afib. She was started on Cardizem. The A fib now is sinus. Pt will be on ASA and Plavix for her CAD. Lisinopril for HTN. Meclizine for Vertigo. Zetia for dyslipidemia.
[2018-05-27 11:21] LABS: INR 1.07; PARTIAL THROMBOPLASTIN TIME 28.8 Seconds (26.9-38.3); PROTHROMBIN TIME 12.1 SECONDS (9.4-12.5)
[2018-05-27 11:23] LABS: ALB/GLOB RATIO 1.4 (1.1-1.8); ALBUMIN 4.7 g/dL (3.0-4.8); ALT/SGPT 26 U/L (7-56); AST/SGOT 45 U/L (17-59); BLOOD UREA NITROGEN 21 mg/dL (7-21); CALCIUM 9.8 mg/dL (8.4-10.5); GFR NON-AFRICAN AMERICAN > 60
[2018-05-27 11:34] LABS: B-TYPE NATRIURETIC PEPTIDE 305 pg/mL (0-450); TROPONIN I < 0.01 ng/mL
--- NOTE | 2018-05-27 12:09 | RAD ---
Date of service: 05/27/2018 HISTORY: palp COMPARISON: 04/05/2018 FINDINGS: LUNGS: No active pulmonary disease. PLEURA: No significant pleural effusion identified, no pneumothorax apparent. CARDIOVASCULAR: No aortic atherosclerotic calcification present. Normal cardiac size. No pulmonary vascular congestion. OSSEOUS STRUCTURES: Sternal wires VISUALIZED UPPER ABDOMEN: Normal. OTHER FINDINGS: None. IMPRESSION: No active disease.
[2018-05-27 12:57] LABS: PH,URINE 6.5 (4.7-8.0); URINE BILIRUBIN NEGATIVE (NEGATIVE); URINE BLOOD NEGATIVE (NEGATIVE); URINE GLUCOSE (UA) 500 mg/dL (NEGATIVE); URINE LEUKOCYTE ESTERASE NEGATIVE Leu/uL (NEGATIVE); URINE PROTEIN 30 mg/dL (<30 mg/dL); URINE UROBILINOGEN 0.2 E.U./dL (<1 E.U./dL)
[2018-05-27 12:58] LABS: URINE APPEARANCE SL CLOUDY (CLEAR); URINE COLOR LIGHT YELLOW (YELLOW)
[2018-05-27 12:59] LABS: URINE RBC 0 - 2 /hpf (0-2)
[2018-05-27 13:00] LABS: URINE BACTERIA FEW /hpf; URINE WBC 0 - 2 /hpf (0-6)
[2018-05-27] MEDS ORDERED: Magnesium Sulfate 2 gm/50 ml 2 GM/50 ML BAG IVPB ONE (14:34)
[2018-05-27] MEDS: Insulin Lispro (humaLOG) LOW Coverage SC SCH ×2 (18:03→21:31)
--- NOTE | 2018-05-27 23:02 | CARD ---
APPROVED REPORT Date of service: 05/27/2018 EKG Measurement Heart [id number] [place] 150P10 [id number] <Conclusion> Normal sinus rhythm ST abnormalities Abnormal ECG
--- NOTE | 2018-05-27 23:05 | CARD ---
APPROVED REPORT Date of service: 05/27/2018 EKG Measurement Heart [id number] <Conclusion> Atrial fibrillation with rapid ventricular response ST & T wave abnormalities Abnormal ECG
[2018-05-28 01:47] VITALS: RESP 20; O2SAT 99
[2018-05-28 06:21] VITALS: TEMP 98
[2018-05-28 08:20] LABS: BASO # 0.02 K/mm3 (0.0-2.0); BASO % 0.2 % (0.0-3.0); EOS # 0.4 (0.0-0.7); EOS % 4.5 % (1.5-5.0); HEMOGLOBIN 12.1 g/dL (14.0-18.0); LYMPH # 3.1 (1.2-3.4); LYMPH % 36.7 % (22.0-35.0); MEAN CELL VOLUME 84.7 fl (80.0-105.0); MEAN CORPUSCULAR HEMOGLOBIN 27.6 pg (25.0-35.0); MEAN CORPUSCULAR HGB CONC 32.6 g/dl (31.0-37.0); MONO # 0.5 (0.1-0.6); MONO % 6.3 % (1.0-6.0); RBC 4.38 10^6/uL (3.5-6.1); RED CELL DISTRIBUTION WIDTH 13.2 % (11.5-14.5); WHITE BLOOD COUNT 8.4 10^3/uL (4.5-11.0)
[2018-05-28 08:30] LABS: ALB/GLOB RATIO 1.3 (1.1-1.8); ALBUMIN 4.4 g/dL (3.0-4.8); ALT/SGPT 18 U/L (7-56); AST/SGOT 25 U/L (17-59); BLOOD UREA NITROGEN 18 mg/dL (7-21); GFR NON-AFRICAN AMERICAN > 60; HDL CHOLESTEROL 45 mg/dL (29-60)
[2018-05-28] MEDS: Insulin Lispro (humaLOG) LOW Coverage SC SCH ×2 (08:33→12:19)
[2018-05-28 08:34] LABS: LDL CHOLESTEROL 71 mg/dL (0-129)
[2018-05-28 09:14] LABS: FREE T4 1.06 ng/dL (0.78-2.19)
[2018-05-28 10:07] VITALS: BP 131/73; PULSE 64
--- NOTE | 2018-05-28 10:26 | PN ---
DATE: 05/28/2018 SUBJECTIVE: The patient has no complaints of any chest pain, no shortness of breath, no headaches. PHYSICAL EXAMINATION: VITAL SIGNS: Temperature is 98, pulse of 56, blood pressure 109/49 and respirations 20. GENERAL: The patient is lying in bed, flat, comfortable. HEENT: No oral lesion. Anicteric sclerae. Moist mucosa. NECK: No JVD, adenopathy, or thyromegaly. CARDIOVASCULAR: S1 and S2, regular. No murmurs, rubs, or gallops. LUNGS: Clear to auscultation bilaterally. No wheeze, rales, or rhonchi. ABDOMEN: Bowel sounds are positive, soft, nontender and nondistended. EXTREMITIES: no cyanosis, clubbing or edema. LABORATORY DATA: Have been reviewed. White count of 9.4, hemoglobin 12.8. ASSESSMENT: 1. Atrial fibrillation with rapid rate. 2. Coronary artery disease. 3. Diabetes type 2. 4. Peripheral neuropathy. 5. Dyslipidemia. 6. Hypertension. PLAN: The patient is currently comfortable. He is on his diltiazem. He is going to be on pressors as well as on hydrochlorothiazide for his hypertension. He is on Plavix for his coronary artery disease. He is on Lisinopril for his hypertension. He is on Zetia. He is currently in sinus rhythm. I will wait for Cardiology evaluation to be done. The patient's TSH is pending. Cardiac enzymes have been negative. If he is cleared by Cardiology, we will discharge home. Ravin Bell MD
--- NOTE | 2018-05-29 01:40 | CON ---
DATE OF CONSULTATION: 05/28/2018 REQUESTING PHYSICIAN: Dr. Bell. REASON FOR CONSULTATION: Atrial fibrillation. HISTORY: This is a 72-year-old man, known to us from a prior admission, who presented to the emergency room with complaints of chest pain and palpitations. He was noted to be in atrial fibrillation with rapid ventricular response. He was treated with IV Cardizem and successfully inverted to sinus rhythm. He remains in sinus rhythm thus far. He reportedly has 9 cardiac stents including 4 of which were placed in early March and a second set replaced several weeks later. Details of this are unavailable. He is unaware of any prior history of atrial fibrillation. I did speak with his son and a physician on the phone to review these issues as well. PAST MEDICAL HISTORY: His past history includes diabetes, peripheral neuropathy, hypertension, hyperlipidemia, and prior prostate cancer. He has undergone prior prostatectomy and had a penile implant performed. MEDICATIONS: His current medications include Ecotrin, Lipitor, metoprolol 25 mg b.i.d., hydrochlorothiazide 12.5 mg daily, Plavix 75 mg daily, Zestril 10 mg daily, and Zetia 10 mg daily. ALLERGIES: NONE. SOCIAL HISTORY: He quit smoking many years ago. He denies alcohol use. He lives at home with his and is retired. FAMILY HISTORY: Father in a motor vehicle accident. Mother has a history of hypertension and COPD. REVIEW OF SYSTEMS: A ten-point review of systems is otherwise unremarkable. PHYSICAL EXAMINATION: GENERAL: He is a middle-aged man, who appears comfortable at the present time. VITAL SIGNS: Blood pressure is 130/70 with a pulse of 62 and sinus, respirations are 16. He is afebrile. HEENT: Normocephalic, atraumatic. NECK: Supple. No JVD noted. CHEST: Few scattered rhonchi heard. HEART: PMI in normal position. No pathological murmurs or gallops noted. ABDOMEN: Soft and nontender. Normoactive bowel sounds. EXTREMITIES: No edema. SKIN: Warm and dry. PSYCHIATRIC: Normal mood and affect. NEUROLOGIC: Alert and oriented x3. No gross motor or sensory deficits notable. DIAGNOSTIC DATA: White count 8.4, hemoglobin and hematocrit are 12.1 and 37.1 with a platelet count of 236,000. PT/PTT are 12.1 and 28.8 and a potassium of 4.8. BUN and creatinine are 18 and 1. Cholesterol 132 with triglycerides 174, HDL of 45, LDL of 71. TSH 4.46. Three sets of cardiac enzymes have been negative. BNP is 305. Initial electrocardiogram showed atrial fibrillation with rapid ventricular response and secondary ST-T changes. Followup electrocardiogram reveals sinus rhythm with nonspecific ST-T abnormalities. Chest x-ray reveals normal cardiac silhouette with clear lung diehl. IMPRESSION: 1. Paroxysmal atrial fibrillation, apparently initial episode. Now back in sinus rhythm. 2. Coronary artery disease, status post multivessel percutaneous coronary intervention and details unavailable with respect to occasion. 3. Recent chest pain with no evidence of cardiac ischemia by enzymes or electrocardiogram, likely due to rapid rate. 4. Rest of the problems as noted. RECOMMENDATIONS: From a cardiac standpoint, he appears stable for discharge home at this time. His current medical regimen can be continued. If he has recurrence of atrial fibrillation, consideration may need to be given to initiation of oral anticoagulation, in which case his aspirin will be withheld, and he will continue on Plavix and an oral agent, be it warfarin or direct oral anticoagulant. In addition, if he does have recurrent atrial fibrillation, consideration can be given to rhythm control therapy with an agent such as sotalol in place of his metoprolol. 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 Thank you for this consultation. We will be happy to see him as needed. Joseluis Joseph MD
== END 2018-05-28 13:33 | disposition home or self-care (01) ==
LOC: ED 10:49 → ERH 11:39 → 2RSO 14:57
PROVIDERS: ADMIT Internal Medicine Nephrology; ATTEND Internal Medicine Nephrology
DX: I48.0 Paroxysmal atrial fibrillation (principal); I25.10 Atherosclerotic heart disease of native coronary artery without angina pectoris; E11.42 Type 2 diabetes mellitus with diabetic polyneuropathy; I10 Essential (primary) hypertension; E83.42 Hypomagnesemia; H91.92 Unspecified hearing loss, left ear; E78.5 Hyperlipidemia, unspecified; Z85.46 Personal history of malignant neoplasm of prostate; Z79.82 Long term (current) use of aspirin; Z79.02 Long term (current) use of antithrombotics/antiplatelets; Z87.891 Personal history of nicotine dependence
CPT/HCPCS: 36415; 71045; 80053; 80061; 81001; 82550; 82948; 83036; 83615; 83735; 83880; 84100; 84439; 84443; 84484; 85025; 85610; 85730; 87040; 87086; 93005; 96365; 96375; 99285; G0378